=== PATIENT | female | born 1980 | race Caucasian/White ===

== ENCOUNTER → 2023-11-21 08:08 | Outpatient (REF) | payer BC, SELFPAY | LOC: RCS 08:08 | PROVIDERS: ATTENDING PHYSICIAN Nurse Practitioner; FAMILY PHYSICIAN Physician Assistant Medical | DX: R06.09 Other forms of dyspnea (principal); Q23.1 Congenital insufficiency of aortic valve; R07.89 Other chest pain | CPT/HCPCS: 93306; Q9950 ==

== ENCOUNTER → 2023-11-23 09:45 | Outpatient (REF) | payer BC, SELFPAY | LOC: DHSLP 09:45 | PROVIDERS: ATTENDING PHYSICIAN Physician Assistant Medical; FAMILY PHYSICIAN Family Medicine | DX: G47.33 Obstructive sleep apnea (adult) (pediatric) (principal); G47.61 Periodic limb movement disorder | CPT/HCPCS: 95810 ==

== ENCOUNTER 2024-02-09 19:20 | Emergency (ER) | payer BC, SELFPAY ==
[2024-02-09 19:26] VITALS: BP 117/75
--- NOTE | 2024-02-09 19:48 | ED.GENMED ---
History of Present Illness
General
Chief Complaint: Throat Problem
Source: patient
Exam Limitations: none
Time Seen by Provider: 02/09/24 19:43
History of Present Illness
History of Present Illness:
See MDM
Past History
Past History
ED Past Medical History: Asthma, Valvular disease (bicuspid aortic) and Other (Migraines, R fibula fracture, Ovarian cyst, Bicuspid aortic valve,)
ED Past Surgical History: (X2)
Social History
Tobacco: Non-smoker
Alcohol: Occasional
Drug: None
Personal:
Living: with family
Employment: Employed
Family History
Family History: Other
Phy Exam
Physical Exam
Physical Exam:
See MDM
Sepsis
Sepsis Screening
Sepsis Assessment: Sepsis Ruled Out
Sepsis Screen
Sepsis Screen: Sepsis Ruled Out
Date: 02/09/24
Time: 21:29
Course
Orders/Labs/Results
Orders:
Orders
02/09/24 19:47
0.9% Sodium Chloride 1000 ml [Nss] 1,000 ml IV BOLUS
Dexamethasone Sod Phosphate [Decadron] 10 mg IV NOW STA
Ketorolac [Toradol] 30 mg IV NOW STA
Ondansetron Injectable [Zofran] 4 mg IV NOW STA
02/09/24 19:59
COVID-19 Antigen Urgent
Source: Nasal Swab
Complete Blood Count/With Diff Urgent
Comprehensive Metabolic Panel Urgent
Monotest Urgent
Influenza A+B Rapid Molecular Urgent
AUBREY Source: Nasal Swab
Specimen Description:
Rapid Strep Group A Urgent
AUBREY Source: Throat/Pharynx
Specimen Description:
Date Specimen was Collected: 02/09/24
Time Specimen was Collected: 19:50
02/09/24 21:27
NSS 1000mL Bolus over 1 hr 0.9% Sodium Chloride 1000 ml [Nss] 1,000 ml IV BOLUS
Abnormal Lab Results
02/09/24
19:59
Glucose 117 H mg/dl
(70-99)
02/09/24 19:59
02/09/24 19:59
Vital Signs
Initial and Last Documented VS:
Initial Vital Signs
Temp Pulse Resp BP Pulse Ox
97.7 F 111 22 117/75 97
02/09/24 19:26 02/09/24 19:26 02/09/24 19:26 02/09/24 19:26 02/09/24 19:26
Last Documented Vital Signs
Temp Pulse Resp BP Pulse Ox
97.7 F 71 16 107/70 98
02/09/24 19:26 02/09/24 21:00 02/09/24 21:00 02/09/24 21:00 02/09/24 21:00
MDM/Problems Addressed
Differential Diagnosis Includes:
HPI and MDM Narrative:
43-year-old female presenting with worsening sore throat. Patient was diagnosed with presumed strep pharyngitis on Monday and started amoxicillin. Symptoms have worsened. She now has decreased p.o. intake and subjective fevers. She complains of
worsening pain on exam, she is clinically dehydrated.
Posterior pharynx shows enlarged tonsils with exudate left greater than right. There is no evidence of uvular deviation. She is protecting her airway.
Since patient is immunocompromised on Enbrel for RA, will continue with antibiotics regardless of the possibility of this being viral. Given the swelling, will start Decadron. Patient given Toradol and fluids.
Physical exam
General: Mildly uncomfortable
HEENT: protecting airway. Posterior pharynx erythematous and edematous. Uvula midline. Exudate noted to the left. Dry mucous membranes
Neck: supple. No stridor
CV: No evidence of cyanosis
Resp: No accessory muscle use
Abd: Non-distended
Extremities: No deformities
Neuro: alert
Psych: Normal affect
Skin: Intact
Problems Addressed including Acute and Chronic Conditions affecting care:
1. Pharyngitis
Acuity: acute
Prognosis: stable
Details: Potentially viral. Regardless, she is immunocompromise. Will continue with antibiotic therapy. Will give dose of Decadron and Toradol
2. Dehydration
Acuity: acute
Prognosis: stable
Details: Appears to be in the setting of poor p.o. intake due to throat pain. Will give IV fluids
Updates
Blood work without clinical significance. Strep symptoms negative. Patient feeling better after IV fluids. She still appears mildly dry. Will give second liter of IV fluids. Patient going home
Differential Diagnosis (but not limited to): Strep pharyngitis, viral pharyngitis, mono
Testing considered: CT neck but there is no crepitus or uvular deviation
Drug therapy (if applicable): OTC meds, please see d/c instruction regarding Rx drugs
Amount and/or Complexity of Data Reviewed
Clinical info obtained from: Patient
External data reviewed: N/A
Labs I independently reviewed (but not limited to): White blood cell count, viral testing negative, strep throat negative
Radiology: N/A
Pulse Ox: not hypoxic
EKG independently reviewed: N/A
Forming Tube Selector: N/A
Critical Care: N/A
Risk of Complication:
Social Determinants of health: Good social support
Discussed with other providers: N/A
Escalation of Care includes Admit/Obs: After being observed in the Emergency Department, pt stable for discharge.
Occasional wrong word or 'sound a like' substitutions may have occurred due to the inherent limitations of voice recognition software. Read the chart carefully and recognize, using context, where substitutions have occurred.
*Critical Care Note
Total Time (30-74mins, 75-104mins- exclusive of procedures): Not Applicable
ED Attending Note
-
Portions of this chart may have been created with voice recognition software.� Occasional wrong word or��sound alike� substitutions may have occurred due to the inherent limitations of voice recognition software.
Discharge Plan
Departure
Patient Disposition: Home (Routine Discharge)
Date of Disposition: 02/09/24
Time of Disposition: 21:28
Patient with high blood pressure during this ER visit?: No
Discharge Problem:
Pharyngitis
Instructions: Sore throat in adults
Prescriptions:
No Action
cetirizine 10 MG tablet
10 mg PO DAILY
bupropion HCl 150 MG tablet extended release 24 hr
150 mg PO DAILY
Enbrel 50 mg/mL (1 mL) Syringe
50 mg SC QWEEK
Wegovy 0.5 mg/0.5 mL Pen Injector
0.5 mg SC QWEEK
epinephrine [Epipen] 0.3 MG/0.3/SYRINGE auto-injector
0.3 mg IM PRN PRN (Reason: allergic reaction)
amoxicillin 500 mg Capsule
500 mg PO BID
Referrals:
Shania Linn PA-C [Family Provider] -
Activity Restrictions/Additional Instructions:
Please return for any worsening symptoms.
You may return at any time if you have further concerns.
Please follow up with your doctor at the first available appointment, preferably this week.
Thank you for choosing [facility].
Interventions
Interventions:
*Risk Screen - Suicide Last Done: 02/09/24 19:25
*General Assessment Last Done: 02/09/24 19:26
*Neglect/Abuse Screening Last Done: 02/09/24 19:26
*ED COVID-19 Vaccine History Last Done: 02/09/24 19:55
ED-EENT Assessment Last Done: 02/09/24 20:17
ED- Pulmonary Assessment Last Done: 02/09/24 20:17
Discharge Date and Time
Print Language: SINGAPOREAN
[2024-02-09 19:55] VITALS: BMI 41.9
[2024-02-09 20:00] VITALS: BP 106/78
[2024-02-09] MEDS: ZOFRAN 4 MG IV (20:07)
[2024-02-09] MEDS: NSS 1000 IV ×2 (20:07→21:43)
[2024-02-09] MEDS: TORADOL 30 MG IV (20:09)
[2024-02-09] MEDS: DECADRON 10 MG IV (20:11)
--- NOTE | 2024-02-09 20:18 | EDRN ---
Pt says she developed one side throat pain one week ago. Pt went to her doctor on Monday and was told it is not strep but prescribed amoxicillin 500 BID. Pt had negative covid/flu test. Pt reports pain is worse and unbearable. Pt has been
alternating tylenol and motrin with last dose tylenol around 0. Pt's children have had colds recently but symptoms were not the same. Pt has not been able to eat for couple days due to the pain. No cp, sob, abd pain, diarrhea/constipation. Pt
concerned because when she stands up she feels dizzy. Pt has had weakness, fever up to 102 and nausea.
[2024-02-09 20:25] LABS: % Basophils 0.5 % (0-2); % Eosinophils 0.4 % (0-6); % Immature Granulocytes 0.5 % (0-0.5); % Lymphocytes 29.1 % (20.5-51.1); % Monocytes 7.3 % (1.7-9.3); % Neutrophils 62.2 % (42.2-75.2); Absolute Lymphocytes 2.4 10^3/uL (1.2-3.4); Absolute Monocytes 0.6 10^3/uL (0.1-0.6); Absolute Neutrophils 5.1 10^3/uL (1.4-6.5); Hematocrit 42.6 % (37.0-47.0); Hemoglobin 14.7 g/dL (12.0-16.0); Mean Corp Hgb Conc. 34.5 g/dL (33.0-37.0); Mean Corpuscular Hgb 30.8 pg (27.0-31.0); Mean Corpuscular Volume 89.3 fL (81.0-99.0); Mean Platelet Volume 9.3 fL (7.4-10.4); Nucleated Red Blood Cells % 0 %; Platelet Count 241 10^3/uL (130-400); Red Blood Cell Count 4.77 10^6/uL (4.20-5.40); Red Cell Dist. Width 12.7 % (11.5-14.5); White Blood Cell Count 8.2 10^3/uL (4.8-10.8)
[2024-02-09 20:45] LABS: ALT (SGPT) 19 U/L (0-35); AST (SGOT) 23 U/L (14-36); Albumin 3.8 g/dl (3.5-5.0); Alkaline Phosphatase 75 U/L (38-126); Blood Urea Nitrogen 15 mg/dl (7-17); COVID-19 Antigen Negative (Negative); Calcium 9.1 mg/dl (8.4-10.2); Carbon Dioxide 22 mmol/L (22-30); Chloride 104 mmol/L (98-107); Estimated Creatinine Clearance > 125 ml/min; Glucose 117 mg/dl (70-99); Potassium 3.8 mmol/L (3.5-5.1); Sodium 139 mmol/L (135-145); Total Bilirubin 0.4 mg/dl (0.2-1.3); Total Protein 6.7 g/dl (6.3-8.2); eGFR > 60.00
[2024-02-09 20:50] LABS: Monotest Negative (Negative)
[2024-02-09 21:00] VITALS: BP 107/70
[2024-02-09 22:00] VITALS: BP 104/64
[2024-02-09 22:58] VITALS: BP 116/63
== END 2024-02-09 23:04 | disposition home or self-care (01) ==
LOC: EMR 19:20
PROVIDERS: EMERGENCY PHYSICIAN Student in an Organized Health Care Education/Training Program; FAMILY PHYSICIAN Physician Assistant Medical
DX: J02.9 Acute pharyngitis, unspecified (principal); J45.909 Unspecified asthma, uncomplicated; I38 Endocarditis, valve unspecified; Q23.1 Congenital insufficiency of aortic valve
CPT/HCPCS: 99283; 96374; 96375; 96361; 80053; 85025; 86308; 87070; 87502; 87811; 87880

== ENCOUNTER 2024-02-14 23:12 | Observation (INO) | payer BC, SELFPAY ==
[2024-02-14 16:35] VITALS: BP 116/62
[2024-02-14 16:54] LABS: % Basophils 0.5 % (0-2); % Eosinophils 1.4 % (0-6); % Immature Granulocytes 1.4 % (0-0.5); % Lymphocytes 21.1 % (20.5-51.1); % Monocytes 5.4 % (1.7-9.3); % Neutrophils 70.2 % (42.2-75.2); Absolute Basophils 0.1 10^3/uL (0-0.2); Absolute Eosinophils 0.2 10^3/uL (0-0.7); Absolute Immature Granulocytes 0.2 10^3/uL (0-0.05); Absolute Lymphocytes 2.8 10^3/uL (1.2-3.4); Absolute Monocytes 0.7 10^3/uL (0.1-0.6); Absolute Neutrophils 9.2 10^3/uL (1.4-6.5); Hematocrit 47.7 % (37.0-47.0); Hemoglobin 16.8 g/dL (12.0-16.0); Mean Corp Hgb Conc. 35.2 g/dL (33.0-37.0); Mean Corpuscular Hgb 31.6 pg (27.0-31.0); Mean Corpuscular Volume 89.7 fL (81.0-99.0); Mean Platelet Volume 9.1 fL (7.4-10.4); Nucleated Red Blood Cells % 0 %; Platelet Count 386 10^3/uL (130-400); Red Blood Cell Count 5.32 10^6/uL (4.20-5.40); Red Cell Dist. Width 12.5 % (11.5-14.5); White Blood Cell Count 13.2 10^3/uL (4.8-10.8)
[2024-02-14 17:12] LABS: HCG, Serum Qualitative Screen Negative
[2024-02-14 17:14] LABS: ALT (SGPT) 40 U/L (0-35); AST (SGOT) 40 U/L (14-36); Albumin 4.3 g/dl (3.5-5.0); Alkaline Phosphatase 78 U/L (38-126); Blood Urea Nitrogen 16 mg/dl (7-17); Calcium 9.7 mg/dl (8.4-10.2); Carbon Dioxide 20 mmol/L (22-30); Chloride 105 mmol/L (98-107); Glucose 102 mg/dl (70-99); Potassium 4.8 mmol/L (3.5-5.1); Sodium 139 mmol/L (135-145); Total Protein 7.4 g/dl (6.3-8.2); eGFR > 60.00
--- NOTE | 2024-02-14 17:47 | ED.GENMED ---
History of Present Illness
General
Chief Complaint: Cold/Flu/URI Symptoms
Source: patient
Exam Limitations: none
Time Seen by Provider: 02/14/24 17:28
Nursing documentation reviewed up to this point in time: agreed with
History of Present Illness
History of Present Illness:
Patient to ED with complaint of weakness, sorethroat, bodyaches, skin rash, nausea/vomiting. She states symptoms started 1.5weeks ago with complaint ofsorethroat. SHe was seen by PCP on 02/05 and placed on amoxicillin for suspected strep
pharyngitis. She reports that she continued to feel worse. Came to ED on 02/08 with report of fever, worsening sorethroat, poor appetite. She was given IVF, steroid and reporst she began to feel better but then began to decline again over weekend.
She was seen by PCP today and was advised tocome to ED. SHe now has a lacy rash to BLE, hands. Denies headache, dizziness, vision changes. No abdominal pain/diarrhea. Denies and SOB/coguugh, chest pain/pressure. To ED accompanied by spouse.
Past History
Past History
ED Past Medical History: Asthma, Valvular disease (bicuspid aortic) and Other (Migraines, R fibula fracture, Ovarian cyst, Bicuspid aortic valve,)
ED Past Surgical History: (X2)
Social History
Tobacco: Non-smoker
Alcohol: Occasional
Drug: None
Personal:
Living: with family
Employment: Employed
Family History
Family History: Other
Review of Systems
Review of Systems
Allergies reviewed?: Yes
Constitutional: Reports fever, fatigue and chills
EENT: Reports sore throat
Respiratory: Reports no symptoms
Cardiac: Reports no symptoms
ABD/GI: Reports nausea and vomiting
: Reports no symptoms
Musculoskeletal: Reports other (generalized body aches)
Skin: Reports rash (lacy rash to hands, bilateral lower legs)
Neurological: Reports weakness
Psychiatric: Reports no symptoms
Phy Exam
General Physical Exam
General Presentation: moderate distress
General age: appears stated age
General Skin: warm and dry
General Habitus: normal
General Hydration: dry mucous membranes
ENT Exam
ENT Exam: EOMI, TM's normal, normocephalic, lymphnodes (enlarged tender left ant. cervical node), pharyngeal erythema and swallowing well
Cardiovascular Exam
Cardiovascular Exam: regular rate/rhythm and no edema
Pulmonary Exam
Pulmonary Exam: lungs clear and no respiratory distress
Gastrointestinal Exam
Gastrointestinal Exam: normal bowel sounds, non tender, soft, no organomegaly, non distended and no cva tenderness
Neurological Exam
Neurological Exam: alert, oriented x3, CN II-XII intact, no motor deficits, no sensory deficits and speech normal
Musculoskeletal Exam
Musculoskeletal Exam: full ROM, neuro vasc intact and other (genralized body aches)
Skin Exam
Skin Exam: normal color, warm/dry, no petechia and other (lace appearing rash on bilateral dorsal hand, BLE.)
Psychiatric Exam
Psychiatric Exam: normal mood/affect
Course
Orders/Labs/Results
Orders:
Orders
02/14/24 Dinner
Regular
At Your Request: Full Participation
Does patient need a safe tray?: No
02/14/24 16:41
Test Result ONCE
02/14/24 16:49
C-Reactive Protein Urgent
Comment: ADD ON
Complete Blood Count/With Diff Urgent
Comprehensive Metabolic Panel Urgent
Erythrocyte Sed Rate Urgent
Comment: ADD ON
HCG, Serum Qualitative Screen Urgent
Monotest Urgent
Comment: ADD ON
02/14/24 17:38
Ketorolac [Toradol] 30 mg IV NOW STA
02/14/24 17:39
0.9% Sodium Chloride 1000 ml [Nss] 1,000 ml IV BOLUS
02/14/24 18:01
Lyme Progressive Urgent
Blood Culture Urgent
AUBREY Source: Blood/Venous
Specimen Description:
02/14/24 18:03
COVID-19 Antigen Urgent
Source: Nasal Swab
Lactic Acid Urgent
Parvo Virus (B19) IgG & IgM [S] Urgent
Influenza A+B Rapid Molecular Urgent
AUBREY Source: Nasal Swab
Specimen Description:
Rapid Strep Group A Urgent
AUBREY Source: Throat/Pharynx
Specimen Description:
Date Specimen was Collected: 02/14/24
Time Specimen was Collected: 17:47
02/14/24 19:56
0.9% Sodium Chloride 1000 ml [Nss] 1,000 ml IV BOLUS
02/14/24 22:39
Admit/Transfer Patient As Directed
Co-Sign Provider:
Level of Care: Observation services
Assign to:: Medical/Surgical
Physician / Group: hospitalist
Diagnosis: Febrile illness
02/14/24 22:40
Code Status As Directed
Resuscitation Status: Full Code
02/14/24 22:58
Trazodone [Desyrel] 100 mg PO NOW STA
02/14/24 23:31
Acetaminophen [Tylenol] 650 mg PO Q4HPRN PRN
Bisacodyl [Dulcolax] 10 mg RECTAL [id number] PRN
Docusate W/Senna [Senokot-S] 1 tablet PO BIDPRN PRN
Polyethylene Glycol Powder [Miralax] 17 grams PO DAILYPRN PRN
02/14/24 23:31
Consult Notification Routine
Specialty to Notify: Infectious Disease
Date consulting provider notified: 02/15/24
Time consulting provider notified: 06:55
Notified:: Provider
Comment: tt
INFECTIOUS DISEASE CONSULT Routine
Consulting Provider: Rodolfo Prince
Was physician already notified: No
Reason for consult: fever of unknown source
Activity As Directed
Activity Level: With Assistance
Pneumatic Compression Sleeves As Directed
Type: Knee high
Vital Signs As Directed
Frequency: Per unit guidelines
DX Deep Vein Thrombosis Video Routine
02/14/24 23:41
Urinalysis Reflex To Culture Urgent
Date Specimen was Collected: 02/14/24
Time Specimen was Collected: 23:36
02/15/24 08:00
Bupropion(24Hr)Extended Releas [WELLBUTRIN XL (24 hour extended release)] 150 mg PO DAILY
Cetirizine HCl [Zyrtec] 10 mg PO DAILY
Fluoxetine HCl [Prozac] 40 mg PO DAILY
Montelukast Sodium [Singulair] 10 mg PO DAILY
02/15/24 08:33
Basic Metabolic Panel IN AM
Complete Blood Count/No Diff IN AM
02/15/24 22:00
Trazodone [Desyrel] 100 mg PO HS
Abnormal Lab Results
02/14/24 02/14/24
16:49 18:03
WBC 13.2 H 10^3/uL
(4.8-10.8)
Hgb 16.8 H g/dL
(12.0-16.0)
Hct 47.7 H %
(37.0-47.0)
MCH 31.6 H pg
(27.0-31.0)
Abs Immat Gran (auto) 0.2 H 10^3/uL
(0-0.05)
Absolute Neuts (auto) 9.2 H 10^3/uL
(1.4-6.5)
Absolute Monos (auto) 0.7 H 10^3/uL
(0.1-0.6)
Immature Gran % 1.4 H %
(0-0.5)
Carbon Dioxide 20 L mmol/L
(22-30)
Glucose 102 H mg/dl
(70-99)
AST 40 H U/L
(14-36)
ALT 40 H U/L
(0-35)
C-Reactive Protein 11.00 H mg/L
(0.0-10.00)
Parvovirus B19 IgG Ab 2.57 H IV
(<=0.90)
02/14/24 16:49
02/14/24 16:49
Vital Signs
Initial and Last Documented VS:
Initial Vital Signs
Temp Pulse Resp BP Pulse Ox
98.1 F 112 20 116/62 95
02/14/24 16:35 02/14/24 16:35 02/14/24 16:35 02/14/24 16:35 02/14/24 16:35
Last Documented Vital Signs
Temp Pulse Resp BP Pulse Ox
98.9 F 75 18 127/93 98
02/16/24 13:25 02/16/24 13:25 02/16/24 13:25 02/16/24 13:25 02/16/24 13:25
*Critical Care Note
Total Time (30-74mins, 75-104mins- exclusive of procedures): Not Applicable
Update Note
Update Note:
Patient to ED with complaint of extreme weakness, ongoing fever, n/v, sorethroat. Today developed a rash to dorsum of her hands and BLE. No petechiae. No headache or neck pain. No abdominal pain. No SOB, cough. Symptms started 1.5 weeks ago and
continue to worsen. Treated with course of amoxicillin 1 week ago without improvement. Evaluated in ED on , some improvement iwth IVF, steroids. Reports quick decline over weekend. Has been unable to eat or drink due to the nausea. Labs
reviewed. WBC 13, lactic normal. Strep influenza and COVID neg. Blood culture results peniding. SHe remains weak,ill appearing after IVF, toradol in dept. Discussed case with Dr. Lua. WIll admit to hospitalist for fever/unknown orgin,
dehydration.
ED Attending Note
-
Portions of this chart may have been created with voice recognition software.� Occasional wrong word or��sound alike� substitutions may have occurred due to the inherent limitations of voice recognition software.
Discharge Plan
Departure
Patient Disposition: Admit
Date of Disposition: 02/14/24
Time of Disposition: 21:56
Presentation/result/management discussed w/ accepting MD/DO: Hospitalist
Condition: Fair
Discharge Problem:
Fever of unknown origin, Acute dehydration
Interventions
Interventions:
*General Assessment Last Done: 02/14/24 16:39
*Neglect/Abuse Screening Last Done: 02/14/24 16:39
*Nursing Disposition Last Done: 02/14/24 23:42
ED- Pulmonary Assessment Last Done: 02/14/24 18:12
Discharge Date and Time
Discharge Date/Time: 02/14/24 23:43
[2024-02-14] MEDS: TORADOL 30 MG IV (18:04)
[2024-02-14] MEDS: NSS 1000 IV ×2 (18:05→19:56)
[2024-02-14 18:21] LABS: Erythrocyte Sed Rate 13 mm/hour (0-20)
[2024-02-14 18:29] LABS: Lactic Acid 1.1 mmol/L (0.7-2.0)
[2024-02-14 18:31] LABS: COVID-19 Antigen Negative (Negative)
[2024-02-14 18:36] LABS: Monotest Negative (Negative)
[2024-02-14 22:23] VITALS: BP 111/71
--- NOTE | 2024-02-14 22:54 | HPS.HSE ---
Family Physician
-
Family Physician: Shania Linn PA-C
Chief Complaint
-
No recurrent fevers rash
History of Present Illness
This is a 43-year-old female with past medical history of rheumatoid arthritis, depression, has mild obesity who presents to the emergency department with ongoing recurrent fevers and episode of new rash that started today.
Patient reports onset of illness about 2 weeks ago. She was feeling well then suddenly developed sore throat and neck tenderness as well as a left-sided ear tenderness and fullness. She was seen in clinic and was diagnosed with a pharyngitis. The
strep tube was negative. She did have clear exudate on the tonsils. She was on amoxicillin and later switched over to Augmentin. She did not have significant improvement and was seen in the emergency department by 5 days ago. At that time she
had negative influenza and COVID test. She also had negative Monospot testing. Parvovirus was negative. She was given IV Decadron and discharged. Patient felt better for 2 days and then started having recurrent fevers again. She recorded a max
temp of 1012 nights ago. She reports nightly chills and then waking up with sweats. She otherwise denies focal symptoms like coughing or shortness of breath. She denies any neck pain sore throat improved. She denies any chest pain. She denied
any nausea or vomiting. She denies abdominal pain. She denies diarrhea. Patient denies flank pain dysuria or pneumaturia. She denied any swelling of her joints. She had no rash until today when she reported a rash in left groin as well as left
hand. She had been taking Tylenol intermittently. Her last dose was last night.
In the emergency department when she was afebrile, blood pressure 117/71 with a pulse of 81. She was at 98% on room air
Medical History
Past Medical History
Past Medical History: Reports Other (Rheumatoid arthritis, depression, asthma,)
Past Surgical History: Reports None
Social History
Tobacco: Non-smoker
Alcohol: None
Drug: None
Personal:
Living: With Family
Employment: Employed
Family History
Family History: Not pertinent
Allergies / Home Medications
Allergies reflects when Allergies were last updated in [employer].
Home Medications with original date entered in [employer]
Allergy/Medication List:
Allergies
Allergy/AdvReac Type Severity Reaction Status Date / Time
azithromycin [From Zithromax] Allergy Hives Verified 02/14/24 16:35
shellfish derived Allergy Anaphylaxis Verified 02/14/24 16:35
sulfamethoxazole Allergy VOMITING Verified 02/14/24 16:35
[From Bactrim]
trimethoprim [From Bactrim] Allergy VOMITING Verified 02/14/24 16:35
Home Medications
cetirizine 10 mg tablet 10 mg PO DAILY Allergies 07/03/11
bupropion HCl 150 mg 24 hr tablet, extended release 150 mg PO DAILY Depression 05/10/19
epinephrine 0.3 mg/0.3 mL injection, auto-injector 0.3 mg IM DAILYPRN PRN allergic reaction 02/09/24
etanercept 50 mg/mL (1 mL) subcutaneous syringe (Enbrel) 50 mg SC PURVIS Anti-Inflammatory 02/09/24
semaglutide (weight loss) 0.5 mg/0.5 mL subcutaneous pen injector (Wegovy) 0.5 mg SC FR weight loss 02/09/24
amoxicillin 875 mg-potassium clavulanate 125 mg tablet 1 tab PO BID 02/14/24
drospirenone (contraceptive) 4 mg (28) tablet (Slynd) 1 tab PO HS 02/14/24
fluoxetine 40 mg capsule 40 mg PO DAILY 02/14/24
montelukast 10 mg tablet 10 mg PO DAILY 02/14/24
trazodone 100 mg tablet 100 mg PO HS 02/14/24
Review of Systems
-
Constitutional: Reports Night Sweats and Chills
EENT: Reports No Symptoms
Respiratory: Reports No Symptoms
Cardiac: Reports No Symptoms
Abdomen/GI: Reports No Symptoms
: Reports No Symptoms
Musculoskeletal: Reports No Symptoms
Skin: Reports Rash
Neurological: Reports No Symptoms
Endocrine: Reports No Symptoms
Hematologic/Lymphatic: Reports No Symptoms
Psych: Reports No Symptoms
Physical Exam
Vital Signs
Vital Signs
Temp Pulse Resp BP Pulse Ox
98.0 F 81 18 111/71 98
02/14/24 22:37 02/14/24 22:23 02/14/24 22:23 02/14/24 22:23 02/14/24 22:23
Physical Exam
General: Well Developed, Well Nourished, No Apparent Distress and Comfortable
HEENT: NormoCephalic, Anicteric, Moist mucous membranes, Atraumatic and PERRLA
Respiratory: Clear
Cardiac: S1/S2 and Regular Rhythm
Breast: Deferred by me
GI: Soft, Non Tender, Non Distended and Normal Bowel Sounds
Rectal: Deferred by Provider
Genito-urinary: Deferred by me
Musculoskeletal: No Clubbing
Skin: Rash (Who is a violaceous erythematous macular-papular rash in the left groin. Nonpruritic.)
Neuro: AO x 3
Hematologic/Lymphatic: Lymphadenopathy
Psych: Calm
Laboratory Results
-
02/14/24 16:49
02/14/24 16:49
Laboratory Results
Lactic Acid 1.1 mmol/L (0.7-2.0) 02/14/24 18:03
Total Bilirubin 1.0 mg/dl (0.2-1.3) 02/14/24 16:49
AST 40 U/L (14-36) H 02/14/24 16:49
ALT 40 U/L (0-35) H 02/14/24 16:49
Alkaline Phosphatase 78 U/L (38-126) 02/14/24 16:49
Data Reviewed
-
Lab Data: Labs Reviewed by me
Old Records: Reviewed
Impression/Plan
-
IMPRESSION:
Patient is a 43-year-old with history of rheumatoid arthritis on Enbrel who presents to the emergency department with development of a violaceous rash on her groin and right hand (dorsal surface) after approximately 1 week of diagnosis with
pharyngitis (negative strep) and a course of antibiotics.
PLAN:
Fever, unknown source -patient afebrile in the emergency department. Hemodynamically stable in no acute distress. She however she has a white count of 13,000 with rest of her labs unremarkable. Influenza is negative COVID is negative. Rapid
strep is negative. She does have pending Lyme. Parvovirus as well as Monospot negative. There are no joint erythema edema or tenderness. No focal findings. 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 Patient without any
abdominal complaints. No alarm signs. Rash not c/w lyme or markus.
- admit to meds/surg obs
- blood culture is NGTD
- complete basic tests for fever of unknown source to include u/a, hiv, HELENA, ferritin, ESR
- no role for empiric abx if currently afebrile with cultures pending
- Id consult
Continue her antidepressants and trazodone
DVT PPX SCDs
Code status - Full
[2024-02-14 23:33] VITALS: BMI 42.2
[2024-02-14 23:34] VITALS: BP 124/81
[2024-02-14] MEDS: DESYREL 100 MG PO (23:44)
[2024-02-14 23:50] LABS: Urine Albumin Negative (Neg - Trace); Urine Bilirubin 1+ (Negative); Urine Character Clear (Clear); Urine Color Amber; Urine Glucose Negative (Negative); Urine Ketone 3+ (Negative); Urine Leukocyte Negative (Negative); Urine Nitrite Negative (Negative); Urine Occult Blood Negative (Negative); Urine Urobilinogen 1+ (Neg - 1+)
--- NOTE | 2024-02-14 23:50 | PTCARENOTE ---
Received pt from ED @ [id number]. Pt NAGI Jiménez. Pt w itchy red rash to tops of hands and thighs. Pt oriented to room, call [facility] and plan of care.
[2024-02-15] MEDS: BENADRYL 25 MG PO ×2 (00:12→09:00)
[2024-02-15 07:10] VITALS: BP 113/83
[2024-02-15] MEDS: ZYRTEC 10 MG PO (08:39)
[2024-02-15] MEDS: PROZAC 40 MG PO (08:39)
[2024-02-15] MEDS: SINGULAIR 10 MG PO (08:39)
[2024-02-15] MEDS: WELLBUTRIN XL (24 hour extended release) 150 MG PO (08:39)
[2024-02-15 09:03] LABS: Hematocrit 43.2 % (37.0-47.0); Hemoglobin 14.8 g/dL (12.0-16.0); Mean Corp Hgb Conc. 34.3 g/dL (33.0-37.0); Mean Corpuscular Hgb 30.9 pg (27.0-31.0); Mean Corpuscular Volume 90.2 fL (81.0-99.0); Mean Platelet Volume 9.3 fL (7.4-10.4); Platelet Count 321 10^3/uL (130-400); Red Blood Cell Count 4.79 10^6/uL (4.20-5.40); Red Cell Dist. Width 12.6 % (11.5-14.5); White Blood Cell Count 9.3 10^3/uL (4.8-10.8)
--- NOTE | 2024-02-15 09:48 | W.PN.HOSP.TC ---
Today's Communication/Plan
-
po benadryl
iv toradol
id consult
bcx
monitor off of atb
Assessment / Plan
Assessment / Plan
NAD, resting comfortably in bed, appear weak
Scleral anicteric
Moist mucous membranes
No JVD
CTA bilateral
Normal S1-S2 no murmurs
Soft nontender nondistended bowel sounds active
No peripheral pitting edema
LE with violaceous dots
hands itchiness
Moves extremities spontaneously, resting tremor
AAOx3
Fever and rash
-unclear source
-coivd neg
-mono neg
-parvo pending
-bcx ordered
-lyme ordered
-id consulted
-hold off on ivatb
-I wonder if there is another rheumatolgoic disorder thats ongoing
-I have tried to call her outpatient medicare nurse but no answer, will try again
- -rick novoa [phone]
-po benadryl prn for itichiness
-iv toradol for joint pain/swelling
Anticipated Discharge: 24 - 48 hours
Subjective/Interval History
-
Date of Service: February 15, 2024
seen and examined
no new comaplints
admits to continue drenching sweats
intermittent itchiness on legs and hands
small violacious dots on hands and legs
outpatient rheum rick novoa, part of [facility]
states she feels worse then a ra flare
no diarrhea nor constipation
Objective Data
-
Labs:
Laboratory Results
02/15/24
08:33
WBC 9.3
Hgb 14.8
Hct 43.2
Plt Count 321
Sodium Pending
Potassium Pending
Chloride Pending
Carbon Dioxide Pending
BUN Pending
Creatinine Pending
Glucose Pending
Calcium Pending
Vital Signs:
Vital Signs
Temp Pulse Resp BP Pulse Ox
98 F 86 16 113/83 95
02/15/24 07:10 02/15/24 07:10 02/15/24 07:10 02/15/24 07:10 02/15/24 07:10
I&O
02/14/24 02/15/24 02/16/24
06:59 06:59 06:59
Intake Total 220 / 220
Output Total 200 / 200
Balance 20 20
[2024-02-15] MEDS: TORADOL 15 MG IV ×2 (09:54→17:34)
[2024-02-15 10:14] LABS: Blood Urea Nitrogen 17 mg/dl (7-17); Carbon Dioxide 20 mmol/L (22-30); Chloride 105 mmol/L (98-107); Estimated Creatinine Clearance > 125 ml/min; Glucose 81 mg/dl (70-99); Potassium 4.8 mmol/L (3.5-5.1); Sodium 141 mmol/L (135-145); eGFR > 60.00
--- NOTE | 2024-02-15 11:02 | CON.ID ---
Consultation
-
Date/Time Consultation Requested: February 14, 2024 2331
Date/Time Consultation Performed: February 15, 2024 1100
Requesting Provider: Dr. Reji Field
Performing Provider: Dr. Geno Gardner
Reason for Consultation: FUO
Chief Complaint / Past History
Chief Complaint
Fatigue, fever, sore throat
History of Present Illness
43 year old female with history of RA on Enbrel, bicuspid Av who presented to hospital on 02/13 with fever. She started feeling unwell 02/01 with sore throat L>R. Of note her teenage daughter had sore throat and fever few days prior to patient
getting sick. Patient saw her PCP on 02/05; Strep screen neg; she was placed on amoxicillin for pharyngitis. However, her sore throat was severe and she could not swallow. She presented to the ED 02/08 Monoscreen neg, COVID neg, Rapid strep screen
and cx negative She received Decadron and Toradol. She was discharged on Augmentin. She was feeling better over the weekend. However, on Monday, had profound fatigue and fever of 101.2. On 02/12, she noted rash on her arms and legs. Initially
non-pruritic then became itchy. She presented to ED 02/13. Afebrile. WBC 13.2. Repeat monoscreen neg. Rapid strep scree neg. COVID/Flu negative. LFT's elevated. Today, pt reports sore throat much improved. However she continues with fatigue.
malaise, and she 'hurts all over'. No RIBEIRO/sinus congestion. No cough. No N/V/Abd pain/diarrhea. No urine sxs. No recent travel. She thinks she may have had mono as a teenager.
Past History
Additional Past Medical History:
RA on Enbrel
Bicuspid aortic valve
migraine headache
Ovarian cyst
Depression
history of right fibula fracture
x 2
Allergy History:
azithromycin [From Zithromax] Allergy (Verified 02/14/24 16:35)
Hives
shellfish derived Allergy (Verified 02/14/24 16:35)
Anaphylaxis
sulfamethoxazole [From Bactrim] Allergy (Verified 02/14/24 16:35)
VOMITING
trimethoprim [From Bactrim] Allergy (Verified 02/14/24 16:35)
VOMITING
Medications Reviewed: Yes
Current Antibiotics:
none
Social History
Tobacco: Non-Smoker
Alcohol: Occasional
Drug: None
Personal:
Living: With Family
Employment: Employed (nursery school teacher)
Family History
Family History: Not Pertinent
Review of Systems
Review of Systems
General: Fever, Chills and Change in Appetite
HEENT: Lymphadenopathy; Negative Stiff Neck, Sinus Problems or Headache
Cardiovascular: Negative Chest Pain or Dyspnea
Respiratory: Negative Dyspnea or Cough
Gasteroenterology: Negative Nausea or Vomiting
Genital / Urological: Negative Dysuria, Hematuria or Flank Pain
Endocrine: Weakness and Fatigue
Musculoskeletal: Myalgias
Skin / Hair / Nails: Rash
Neurological: Negative Headache or Dizziness
All systems: All other systems were reviewed and were negative
Vital Signs
Temp Pulse Resp BP Pulse Ox
98 F 86 16 113/83 95
02/15/24 07:10 02/15/24 07:10 02/15/24 07:10 02/15/24 07:10 02/15/24 07:10
Physical Exam
Physical Exam
Constitutional: No Acute Distress and Non-toxic
Head: Normocephalic (No frontal or maxillary sinus tenderness.)
Eyes: No Conjunctival Hemorrhage and Sclera Anicteric
Pharynx: Erythema (mild L>R)
Oral: No Thrush
Lymph Nodes: Lymphadenopathy (left submandible)
Cardiovascular: Regular Rate and S1/S2
Pulmonary: Clear
Gastrointestinal: Soft, Non Tender, Non Distended and Normal Bowel Sounds
Genito-Urinary: Negative CVA Tenderness
Extremities: Negative Edema
Skin: Rash (Resolving circular annular rash dorsum of hands )
Neurological: AO x 3
Lab / Diagnostic Study Results
02/15/24 08:33
02/15/24 08:33
Abs Immat Gran (auto) 0.2 10^3/uL (0-0.05) H 02/14/24 16:49
Absolute Neuts (auto) 9.2 10^3/uL (1.4-6.5) H 02/14/24 16:49
Absolute Lymphs (auto) 2.8 10^3/uL (1.2-3.4) 02/14/24 16:49
Absolute Monos (auto) 0.7 10^3/uL (0.1-0.6) H 02/14/24 16:49
Absolute Basos (auto) 0.1 10^3/uL (0-0.2) 02/14/24 16:49
Immature Gran % 1.4 % (0-0.5) H 02/14/24 16:49
Neutrophils % 70.2 % (42.2-75.2) 02/14/24 16:49
Lymphocytes % 21.1 % (20.5-51.1) 02/14/24 16:49
Monocytes % 5.4 % (1.7-9.3) 02/14/24 16:49
Eosinophils % 1.4 % (0-6) 02/14/24 16:49
Basophils % 0.5 % (0-2) 02/14/24 16:49
ESR 13 mm/hour (0-20) 02/14/24 16:49
Lactic Acid 1.1 mmol/L (0.7-2.0) 02/14/24 18:03
C-Reactive Protein 11.00 mg/L (0.0-10.00) H 02/14/24 16:49
Microbiology Results
Micro:
02/14/24 18:03 Influenza Types A & B (VIKTORIA) - Final
Nasal Swab Negative for Influenza A & B, NAAT
Negative results must be combined with clinical observations
and patient history.
Nucleic Acid Amplification test (NAAT)performed on the
[employer] ID NOW platform.
02/14/24 18:03 Streptococcus Screen (AUBREY) - Pending
Throat/Pharynx Streptococcus Rapid Screen - Final
Rapid Strep Screen (Group A) Negative
02/14/24 18:01 Blood Culture - Pending
Blood/Venous
02/14/24CXR: No acute cardiopulmonary process.
Assessment / Plan
# Pharyngitis/fatigue
# Rash
# Elevated transaminases
# Fever at home
DDX:
? Primary EBV. Amoxicillin may have precipitated the rash.
? Primary CMV
? Respiratory virus
Plan:
- Ordered EBV Ab panel. Monoscreen is not sensitive test.
- Ordered CMV IgG, IgM
- Unlikely tickborne dz, but check Anaplasma and Ehrlichia serologies.
- Supportive care.
-Observe off abx for now
[2024-02-15 15:03] LABS: Lyme Antibody Screen, EIA Presump. Positive (Negative)
[2024-02-15 15:40] VITALS: BP 112/77
--- NOTE | 2024-02-15 16:54 | CM ---
dealer relationship manager reviewed patient's chart and met with patient and patient lives with with spouse and 2 daughter in a 2 story home home. Patient is independent with adl's and ambulation, no dme, patient drives, home when stable.
Pharmacy: [facility] in [place]
PCP: Shania Linn.
Plan; Home when stable.
[2024-02-15] MEDS: NSS 500 IV (18:17)
--- NOTE | 2024-02-15 18:25 | PTCARENOTE ---
Pt received from prior RN, states she is feeling better than she did earlier in the day. She complains of generalized body aches and malaise but states that her rash overall looks much better. +2 edema of the hand. Wedding ring is in place on pt's L
hand, coloring appears normal.
[2024-02-15] MEDS: DESYREL 100 MG PO (21:09)
[2024-02-15 22:59] VITALS: BP 101/63
[2024-02-16 07:30] VITALS: BP 101/71
[2024-02-16] MEDS: WELLBUTRIN XL (24 hour extended release) 150 MG PO (08:21)
[2024-02-16] MEDS: PROZAC 40 MG PO (08:21)
[2024-02-16] MEDS: SINGULAIR 10 MG PO (08:21)
[2024-02-16] MEDS: ZYRTEC 10 MG PO (08:21)
[2024-02-16 09:11] VITALS: BMI 42.2
--- NOTE | 2024-02-16 11:18 | CM ---
Chart reviewed home when stable, patient remains on OBS status. Asked UR to review.
Plan; Home no needs.
--- NOTE | 2024-02-16 12:01 | W.PN.HOSP.TC ---
Today's Communication/Plan
-
follow up on serologies and titers
discuss with ID or follow up there note for atb recs if lyme presumed + likely etiology
-would consider doxy 100mg bid x10day
Assessment / Plan
Assessment / Plan
NAD, resting comfortably in bed, appear weak
Scleral anicteric
Moist mucous membranes
No JVD
CTA bilateral
Normal S1-S2 no murmurs
Soft nontender nondistended bowel sounds active
No peripheral pitting edema
LE with violaceous dots
hands itchiness
Moves extremities spontaneously, resting tremor
AAOx3
Fever and rash
-unclear source
-coivd neg
-mono neg
-parvo pending
-bcx ordered
-lyme ordered, presumed +, will discuss with ID starting doxy 100mg BID [id number]
-id following
-hold off on ivatb
-I wonder if there is another rheumatolgoic disorder thats ongoing
-I have tried to call her outpatient bulk delivery driver but no answer, will try again
- -rick novoa [phone]
-po benadryl prn for itichiness
-iv toradol for joint pain/swelling
Anticipated Discharge: 24 - 48 hours
Subjective/Interval History
-
Date of Service: February 16, 2024
seen and examined
no new changes
feels the same
no acute overnight events
Objective Data
-
Vital Signs:
Vital Signs
Temp Pulse Resp BP Pulse Ox
98.3 F 76 16 101/71 95
02/16/24 07:30 02/16/24 07:30 02/16/24 07:30 02/16/24 07:30 02/16/24 09:42
I&O
02/15/24 02/16/24 02/17/24
06:59 06:59 06:59
Intake Total 220 / 220 700 / 700
Output Total 200 / 200
Balance 20 / 20 700 / 700
--- NOTE | 2024-02-16 12:21 | W.PN.ID1 ---
Date of Service
Date of Service: February 16, 2024
Today's Communication
See below. DC planning.
Assessment / Plan
# Pharyngitis- resolving
# fatigue
# Rash
# Myalgia
# Mild Elevated transaminases
# Fever at home
DDX:
? Viral illmess
? Primary CMV
? Primary EBV. Amoxicillin may have precipitated the rash.
Plan:
- EBV Ab panel pending. Monoscreen is not sensitive test.
- CMV IgG, IgM pending
- Unlikely tickborne dz, Anaplasma and Ehrlichia serologies pending
- Lyme is NOT associated with pharyngitis.
Lyme screen positive, reflex IgG and IgM western blot pending. Of note, pt reports h/o of Lyme in 2017, so IgG expected to be positive. The IgM Western Blot may or may not be helpful.
- Supportive care.
-Observe off abx for now
- Can dc home. I will call her when pending lab results are available.
Chief Complaint
-: Other (Fatigue)
Subjective / Review of Systems
Feels better today. Still exhausted.
Has transient rash.
Vital Signs / Physical Exam
Vital Signs
Vital Signs
Temp Pulse Resp BP Pulse Ox
98.3 F 76 16 101/71 95
02/16/24 07:30 02/16/24 07:30 02/16/24 07:30 02/16/24 07:30 02/16/24 09:42
Physical Exam
Constitutional: No Acute Distress and Comfortable
Eyes: No Conjunctival Hemorrhage and Sclera Anicteric
Cardiovascular: Regular Rate and S1/S2
Pulmonary: Clear
Gastrointestinal: Soft, Non Tender and Non Distended
Genito-Urinary: Negative CVA Tenderness
Extremities: Negative Edema
Neurological: AO x 3
Objective Data
Lab Data
Lab Results
02/15/24 08:33
02/15/24 08:33
ESR 13 mm/hour (0-20) 02/14/24 16:49
Estimated Creat Clear > 125 ml/min 02/15/24 08:33
Lactic Acid 1.1 mmol/L (0.7-2.0) 02/14/24 18:03
Total Bilirubin 1.0 mg/dl (0.2-1.3) 02/14/24 16:49
AST 40 U/L (14-36) H 02/14/24 16:49
ALT 40 U/L (0-35) H 02/14/24 16:49
Alkaline Phosphatase 78 U/L (38-126) 02/14/24 16:49
C-Reactive Protein 11.00 mg/L (0.0-10.00) H 02/14/24 16:49
Most recent labs reviewed.
Micro Results:
02/14/24 18:01 Blood Culture - Preliminary
Blood/Venous No Growth in 24 hours- Final report to follow
02/14/24 18:03 Streptococcus Screen (AUBREY) - Preliminary
Throat/Pharynx Culture in Progress
Streptococcus Rapid Screen - Final
Rapid Strep Screen (Group A) Negative
02/14/24 18:03 Influenza Types A & B (VIKTORIA) - Final
Nasal Swab Negative for Influenza A & B, NAAT
Negative results must be combined with clinical observations
and patient history.
Nucleic Acid Amplification test (NAAT)performed on the
[employer] NOW platform.
02/14/24CXR: No acute cardiopulmonary process.
02/16/24 Abd US: unremarkable
Care Review
Plan reviewed with: Physician (Dr. Pati Field)
--- NOTE | 2024-02-16 13:19 | W.DCSUMMARY ---
Discharge Summary
Discharge Data
Date of Admission: 02/14/24
Date of Discharge: 02/16/24
-
Pending Results: No
Hospital Course
43 F with history of history of rheumatoid arthritis, depression. Presented with fever, joint pains and rash. Evaluated by infectious disease. Titres for tick borne illnesses, cmv, ebv and parovovirus obtained. Monitor off of antibiotics. ID
believed likely a viral illness or ebv associated amoxicillin rash. ID has recommended no antibiotics and discharge home with outpatient follow up. ID will call to update about lab findings.
Discharge Plan
-
Patient Disposition: Home (Routine Discharge)
Discharge Diagnosis/Procedures: Fever joint pain and rash
Viral illness vs primary cmv vs primary ebv.
history of rheumatoid arthritis, depression,
Condition: Good
Diet: No restrictions and As tolerated
Activity: No restrictions and As tolerated
Driving Restrictions: As prior to admission
Activity Restrictions/Additional Instructions:
Presente with fever, joint pains and rash. Evaluated by infectious disease. Titres for tick borne illnesses, cmv, ebv and parovovirus obtained. Monitor off of antibiotics. ID belived likely a viral illness or ebv associated amoxicillin rash. ID has
recommended no antibiotics and discharge home with outpatient follow up. ID will call to update about lab findings.
Referrals:
Shania Linn PA-C [Family Provider] -
Geno Gardner MD [Active] -
Prescriptions:
Continued
cetirizine 10 MG tablet
10 mg PO DAILY
bupropion HCl 150 MG tablet extended release 24 hr
150 mg PO DAILY
Enbrel 50 mg/mL (1 mL) Syringe
50 mg SC PURVIS
Wegovy 0.5 mg/0.5 mL Pen Injector
0.5 mg SC FR
epinephrine 0.3 MG/0.3/SYRINGE auto-injector
0.3 mg IM DAILYPRN PRN (Reason: allergic reaction)
fluoxetine 40 mg Capsule
40 mg PO DAILY
trazodone 100 mg Tablet
100 mg PO HS
montelukast 10 mg Tablet
10 mg PO DAILY
Slynd 4 mg (28) Tablet
1 tab PO HS
Discontinued
amoxicillin-pot clavulanate [Augmentin] 875-125 mg Tablet
1 tab PO BID
Patient Comments:
02/14/24: filled 02/09/24 for 20 tablets over 10 days
Discharge Orders:
Discharge Patient (As Directed); Ordered 02/16/24
Ordered By: Reji Field
Discharge Date and Time
Print Language: SCOTTISH
[2024-02-16 13:25] VITALS: BP 127/93
[2024-02-17 17:08] LABS: CMV IgG Antibody <0.20 U/mL (<=0.70)
[2024-02-17 17:12] LABS: EBV-EA (D) Ab IgG <5.0 U/mL (0.0-10.9); EBV-NA IgG 31.5 U/mL (0.0-21.9); EBV-VCA IgM Antibodies 27.1 U/mL (0.0-43.9)
[2024-02-17 17:17] LABS: CMV IgM Antibody 20.3 AU/mL (<=29.9)
[2024-02-18 13:48] LABS: Ehrlichia chaffeensis IgG Ab <1:64 (<1:64); Ehrlichia chaffeensis IgM Ab < 1:16 (< 1:16)
[2024-02-18 15:06] LABS: Parvo B19 Ab, IgM 0.16 IV (<=0.89); Parvo Virus B19 Ab, IgG 2.57 IV (<=0.90)
[2024-02-18 17:08] LABS: Lyme Ab Western Blot IgG Negative (Negative); Lyme Ab Western Blot IgM Negative (Negative)
== END 2024-02-16 14:18 | disposition home or self-care (01) ==
LOC: 4 WEST ACU 23:12
PROVIDERS: Nurse Practitioner; ADMITTING PHYSICIAN Internal Medicine; ATTENDING PHYSICIAN Hospitalist; EMERGENCY PHYSICIAN Student in an Organized Health Care Education/Training Program; FAMILY PHYSICIAN Physician Assistant Medical; OTHER PHYSICIAN Internal Medicine Infectious Disease
DX: R50.9 Fever, unspecified (principal); R53.1 Weakness; J02.9 Acute pharyngitis, unspecified; R21 Rash and other nonspecific skin eruption; R11.2 Nausea with vomiting, unspecified; J45.909 Unspecified asthma, uncomplicated; Q23.1 Congenital insufficiency of aortic valve; M79.10 Myalgia, unspecified site; R25.1 Tremor, unspecified; R53.81 Other malaise; R74.01 Elevation of levels of liver transaminase levels; R53.83 Other fatigue; E86.0 Dehydration; M06.9 Rheumatoid arthritis, unspecified; F32.A Depression, unspecified; E66.9 Obesity, unspecified; M54.2 Cervicalgia; Z68.41 Body mass index [BMI] 40.0-44.9, adult; Z11.52 Encounter for screening for COVID-19; Z88.2 Allergy status to sulfonamides; Z88.1 Allergy status to other antibiotic agents; Z91.013 Allergy to seafood
CPT/HCPCS: 71046; 76700; 80048; 80053; 81003; 83605; 84703; 85025; 85027; 85652; 86140; 86308; 86617; 86618; 86644; 86645; 86663; 86664; 86665; 86666; 86747; 87040; 87070; 87502; 87811; 87880; 96361; 96374; 99284; G0378

== ENCOUNTER 2024-07-30 17:28 | Inpatient (IN) | payer BC, SELFPAY ==
[2024-07-30] VITALS (20 sets, daily range): BP systolic 91–105; BP diastolic 43–71; PULSE 62–90; BMI 38.6; BMI 37.9
--- NOTE | 2024-07-30 12:36 | ED.GENMED ---
History of Present Illness
<Teddy Shah DO - Last Filed: 07/31/24 15:07>
General
Chief Complaint: Cold/Flu/URI Symptoms
Source: patient and family
Exam Limitations: none
Time Seen by Provider: 07/30/24 11:25
Nursing documentation reviewed up to this point in time: agreed with
History of Present Illness
History of Present Illness:
44-year-old female history of rheumatoid, off her biologic due to episode of an eye complication, nondrinker non-smoker who was in bed with the flu last week with fever and chills recovered then developed acute onset of fatigue and chills today went
to an urgent care was hypotensive told she may have a sinus infection referred to the ER for evaluation states she feels globally weak with bodyaches, congestion with wheeze does have asthma has not been on any antibiotics has no calf pain no
history of DVT PE
Negative COVID and flu swabs at the urgent care
Past History
<Teddy Shah, DO - Last Filed: 07/31/24 15:07>
Past History
ED Past Medical History: Asthma, Valvular disease (bicuspid aortic), Other (Migraines, R fibula fracture, Ovarian cyst, Bicuspid aortic valve,) and Other
ED Past Surgical History: (X2)
Social History
Tobacco: Non-smoker
Alcohol: None
Drug: None
Personal:
Living: with family
Employment: Employed
Family History
Family History: Other
Review of Systems
<Teddy Shah, DO - Last Filed: 07/31/24 15:07>
Review of Systems
All Other Systems: Not applicable
Constitutional: Reports fatigue and chills
Respiratory: Reports cough and trouble breathing; Denies hemoptysis
Cardiac: Reports no symptoms
ABD/GI: Reports no symptoms
: Reports no symptoms
Musculoskeletal: Reports muscle stiffness
Skin: Reports no symptoms
Neurological: Reports weakness
Phy Exam
<Teddy Shah, DO - Last Filed: 07/31/24 15:07>
Physical Exam
Physical Exam:
Physical Exam
General: 44 female looks uncomfortable
Neck: Lips are dry
Heart: s1/s2 regular rate and rhythm, no murmur. equal radial pulses.
Lungs: no acute respiratory distress. clear bilaterally
Abdomen: Not
Neuro: alert and oriented. no focal neurological deficits
Skin: no rash
Psychiatric: well kept. interactive and cooperative
Extremities: no edema
Course
<Teddy Shah, DO - Last Filed: 07/31/24 15:07>
Orders/Labs/Results
Orders:
Orders
07/30/24 11:07
Electrocardiogram (*1) Urgent
Reason for Study: Chest Pain
EKG- Treatment ONCE
07/30/24 11:26
CR Chest - 2 Views Urgent
Comment:
Reason For Exam: sob
07/30/24 12:10
0.9% Sodium Chloride 1000 ml [Nss] 1,000 ml IV BOLUS
Ipratropium/Albuterol Sulfate [Duoneb] 3 ml INH R NOW STA
Ketorolac [Toradol] 30 mg IV NOW STA
07/30/24 12:45
Complete Blood Count/With Diff Urgent
Comprehensive Metabolic Panel Urgent
Procalcitonin Urgent
TSH Reflex To Free T4 Urgent
Comment: TSH REFLEX ADDED ON BY FLOOR 4:40PM 07-30-24
07/30/24 13:00
CT Pe/abd/pel W Urgent
Reason For Exam: sob low bp clear cxr
07/30/24 13:07
Add On- LAB Urgent
Tests Added?: procalcitonin
07/30/24 13:13
CefTRIAXone [Rocephin] 1,000 mg IV NOW STA
07/30/24 13:35
Sterile Water [Sterile Water For Injection] 10 ml .ROUTE .[facility]-MED ONE
07/30/24 14:56
Urinalysis Reflex To Culture Urgent
Date Specimen was Collected: 07/30/24
Time Specimen was Collected: 14:51
07/30/24 16:43
Add On- LAB Routine
Tests Added?: TSH and reflex T4
07/30/24 17:00
0.9% Sodium Chloride 500 ml [Nss] 1,000 ml IV Wide Open mls/hr
07/30/24 17:08
Admit/Transfer Patient As Directed
Co-Sign Provider:
Level of Care: Inpatient admission
Assign to:: Telemetry
Physician / Group: Hema Nugent
Diagnosis: Hypotension
Reason for Telemetry: Other
Other Reason for Telemetry: Fusiform aortic aneurysm
Date to Stop Telemetry: 08/01/24
Time to Stop Telemetry: 11:00
Reason for Hospitalization: Persistent hypotension
Expected length of stay greater than two midnights?: Yes
ELOS- Estimated Length of Stay in days: 3
I certify the patient meets the requirements for IP care: Yes
PRN Pain Medication Management As Directed
May give lesser potent ordered pain med per pt: Yes
preference::
Protocol:: Medication orders for pain may be administered in a
manner that supports deferring to patient preference
when the pt is:
- Requesting an ordered lesser potent pain medication.
Least to most potent pain medications are defined
as: acetaminophen < NSAID < tramadol < opioids
(morphine, oxycodone, hydromorphone).
- Requesting a lesser dose of the same medication IF
ORDERED.
- Requesting a less intrusive route of administration
if both routes are prescribed by the provider (PO <
IV).
07/30/24 17:09
Code Status As Directed
Resuscitation Status: Full Code
07/30/24 19:07
Lactic Acid Routine
Blood Culture Q30M
AUBREY Source: Blood/Venous
Specimen Description:
07/30/24 19:16
Blood Culture Q30M
AUBREY Source: Blood/Venous
Specimen Description:
07/30/24 19:39
0.9% Sodium Chloride 1000 ml [Nss] 1,000 ml IV 100 mls/hr
Bisacodyl [Dulcolax] 10 mg RECTAL [id number] PRN
Docusate W/Senna [Senokot-S] 1 tablet PO BIDPRN PRN
Enoxaparin Sodium [Lovenox] 40 mg SC QPM
Ipratropium/Albuterol Sulfate [Duoneb] 3 ml INH R Q4HPRN PRN
Ondansetron Injectable [Zofran] 4 mg IV Q6HPRN PRN
Polyethylene Glycol Powder [Miralax] 17 grams PO DAILYPRN PRN
07/30/24 19:39
Activity As Directed
Activity Level: As Tolerated
Notify MD As Directed
Notify physician if: Bridge Admission orders placed.
Notify attending physician:
-- upon arrival to unit
OR
-- when patient is identified as an ED hold
Vital Signs As Directed
Frequency: Per unit guidelines
O2 Therapy [RESP] Routine
Titrate/Wean O2 to maintain O2 sat greater than (%): 92
DX Deep Vein Thrombosis Video Routine
07/30/24 20:00
Acetaminophen [Tylenol] 650 mg PO Q4HWA
07/30/24 22:00
Trazodone [Desyrel] 100 mg PO HS
drospirenone (contraceptive) [Slynd] 1 tablet PO HS
07/31/24 06:00
Echo 2D MMode Color/Doppler IN AM
Reason for Study: hypotension, H/O bicuspid aorta
07/31/24 06:44
Complete Blood Count/With Diff IN AM
Comprehensive Metabolic Panel IN AM
Cortisol, Random IN AM
07/31/24 08:00
Bupropion(24Hr)Extended Releas [WELLBUTRIN XL (24 hour extended release)] 150 mg PO DAILY
Cetirizine HCl [Zyrtec] 10 mg PO DAILY
Montelukast Sodium [Singulair] 10 mg PO DAILY
08/01/24 11:00
DC Protocol for Telemetry ONCE
Abnormal Lab Results
07/30/24
12:45
MCH 31.3 H pg
(27.0-31.0)
07/30/24 12:45
07/30/24 12:45
Vital Signs
Initial and Last Documented VS:
Initial Vital Signs
Temp Pulse Resp BP Pulse Ox
98.6 F 77 20 105/59 100
07/30/24 11:00 07/30/24 11:00 07/30/24 11:00 07/30/24 11:00 07/30/24 11:00
Last Documented Vital Signs
Temp Pulse Resp BP Pulse Ox
98.2 F 71 18 108/68 95
07/31/24 11:08 07/31/24 11:08 07/31/24 11:08 07/31/24 11:08 07/31/24 11:08
<Matt Ma PA-C - Last Filed: 07/30/24 16:31>
Orders/Labs/Results
Orders:
Orders
07/30/24 11:07
Electrocardiogram (*1) Urgent
Reason for Study: Chest Pain
EKG- Treatment ONCE
07/30/24 11:26
CR Chest - 2 Views Urgent
Comment:
Reason For Exam: sob
07/30/24 12:10
0.9% Sodium Chloride 1000 ml [Nss] 1,000 ml IV BOLUS
Ipratropium/Albuterol Sulfate [Duoneb] 3 ml INH R NOW STA
Ketorolac [Toradol] 30 mg IV NOW STA
07/30/24 12:45
Complete Blood Count/With Diff Urgent
Comprehensive Metabolic Panel Urgent
Procalcitonin Urgent
TSH Reflex To Free T4 Urgent
Comment: TSH REFLEX ADDED ON BY FLOOR 4:40PM 07-30-24
07/30/24 13:00
CT Pe/abd/pel W Urgent
Reason For Exam: sob low bp clear cxr
07/30/24 13:07
Add On- LAB Urgent
Tests Added?: procalcitonin
07/30/24 13:13
CefTRIAXone [Rocephin] 1,000 mg IV NOW STA
07/30/24 13:35
Sterile Water [Sterile Water For Injection] 10 ml .ROUTE .[facility]
07/30/24 14:56
Urinalysis Reflex To Culture Urgent
Date Specimen was Collected: 07/30/24
Time Specimen was Collected: 14:51
07/30/24 16:43
Add On- LAB Routine
Tests Added?: TSH and reflex T4
07/30/24 17:00
0.9% Sodium Chloride 500 ml [Nss] 1,000 ml IV Wide Open mls/hr
07/30/24 17:08
Admit/Transfer Patient As Directed
Co-Sign Provider:
Level of Care: Inpatient admission
Assign to:: Telemetry
Physician / Group: Hema Nugent
Diagnosis: Hypotension
Reason for Telemetry: Other
Other Reason for Telemetry: Fusiform aortic aneurysm
Date to Stop Telemetry: 08/01/24
Time to Stop Telemetry: 11:00
Reason for Hospitalization: Persistent hypotension
Expected length of stay greater than two midnights?: Yes
ELOS- Estimated Length of Stay in days: 3
I certify the patient meets the requirements for IP care: Yes
PRN Pain Medication Management As Directed
May give lesser potent ordered pain med per pt: Yes
preference::
Protocol:: Medication orders for pain may be administered in a
manner that supports deferring to patient preference
when the pt is:
- Requesting an ordered lesser potent pain medication.
Least to most potent pain medications are defined
as: acetaminophen < NSAID < tramadol < opioids
(morphine, oxycodone, hydromorphone).
- Requesting a lesser dose of the same medication IF
ORDERED.
- Requesting a less intrusive route of administration
if both routes are prescribed by the provider (PO <
IV).
07/30/24 17:09
Code Status As Directed
Resuscitation Status: Full Code
07/30/24 19:07
Lactic Acid Routine
Blood Culture Q30M
AUBREY Source: Blood/Venous
Specimen Description:
07/30/24 19:16
Blood Culture Q30M
AUBREY Source: Blood/Venous
Specimen Description:
07/30/24 19:39
0.9% Sodium Chloride 1000 ml [Nss] 1,000 ml IV 100 mls/hr
Bisacodyl [Dulcolax] 10 mg RECTAL [id number] PRN
Docusate W/Senna [Senokot-S] 1 tablet PO BIDPRN PRN
Enoxaparin Sodium [Lovenox] 40 mg SC QPM
Ipratropium/Albuterol Sulfate [Duoneb] 3 ml INH R Q4HPRN PRN
Ondansetron Injectable [Zofran] 4 mg IV Q6HPRN PRN
Polyethylene Glycol Powder [Miralax] 17 grams PO DAILYPRN PRN
07/30/24 19:39
Activity As Directed
Activity Level: As Tolerated
Notify MD As Directed
Notify physician if: Bridge Admission orders placed.
Notify attending physician:
-- upon arrival to unit
OR
-- when patient is identified as an ED hold
Vital Signs As Directed
Frequency: Per unit guidelines
O2 Therapy [RESP] Routine
Titrate/Wean O2 to maintain O2 sat greater than (%): 92
DX Deep Vein Thrombosis Video Routine
07/30/24 20:00
Acetaminophen [Tylenol] 650 mg PO Q4HWA
07/30/24 22:00
Trazodone [Desyrel] 100 mg PO HS
drospirenone (contraceptive) [Slynd] 1 tablet PO HS
07/31/24 06:00
Echo 2D MMode Color/Doppler IN AM
Reason for Study: hypotension, H/O bicuspid aorta
07/31/24 06:44
Complete Blood Count/With Diff IN AM
Comprehensive Metabolic Panel IN AM
Cortisol, Random IN AM
07/31/24 08:00
Bupropion(24Hr)Extended Releas [WELLBUTRIN XL (24 hour extended release)] 150 mg PO DAILY
Cetirizine HCl [Zyrtec] 10 mg PO DAILY
Montelukast Sodium [Singulair] 10 mg PO DAILY
08/01/24 11:00
DC Protocol for Telemetry ONCE
Abnormal Lab Results
07/30/24
12:45
MCH 31.3 H pg
(27.0-31.0)
07/30/24 12:45
07/30/24 12:45
Vital Signs
Initial and Last Documented VS:
Initial Vital Signs
Temp Pulse Resp BP Pulse Ox
98.6 F 77 20 105/59 100
07/30/24 11:00 07/30/24 11:00 07/30/24 11:00 07/30/24 11:00 07/30/24 11:00
Last Documented Vital Signs
Temp Pulse Resp BP Pulse Ox
98.2 F 71 18 108/68 95
07/31/24 11:08 07/31/24 11:08 07/31/24 11:08 07/31/24 11:08 07/31/24 11:08
<Teddy Shah, DO - Last Filed: 07/31/24 15:07>
MDM/Problems Addressed
Differential Diagnosis Includes:
Pneumococcal pneumonia sepsis dehydration PE
MDM/Problems Addressed:
Fatigue shortness of breath low blood pressure
Chronic conditions affecting care: Asthma and Immunosuppressed
Acute Exacerbation and/or Progression of Chronic Illness: Asthma and Immunosuppressed
<Teddy Shah, - Last Filed: 07/31/24 15:07>
*Critical Care Note
Total Time (30-74mins, 75-104mins- exclusive of procedures): 30
<Teddy Shah, - Last Filed: 07/31/24 15:07>
Update Note
Update Note:
1 PM chest x-ray noted official report noted white count noted we will continue to hydrate given nebs consideration for CT of the chest to rule out PE or occult infection
Will also check procalcitonin
Continue hydration consideration for empiric antibiotics will also check CT abdomen rule out any intra-abdominal pathology and a urinalysis
<Matt Ma PA-C - Last Filed: 07/30/24 16:31>
Update Note
Update Note:
1 PM chest x-ray noted official report noted white count noted we will continue to hydrate given nebs consideration for CT of the chest to rule out PE or occult infection
Will also check procalcitonin
Continue hydration consideration for empiric antibiotics will also check CT abdomen rule out any intra-abdominal pathology and a urinalysis
1530: Care signed out out to me from Dr Shah, pending imaging. Pt remains hypotensive despite IV fluids. Will admit for further workup
ED Attending Note
<Teddy Shah, DO - Last Filed: 07/31/24 15:07>
-
Portions of this chart may have been created with voice recognition software.� Occasional wrong word or��sound alike� substitutions may have occurred due to the inherent limitations of voice recognition software.
Discharge Plan
Departure
Patient Disposition: Admit
Date of Disposition: 07/30/24
Time of Disposition: 15:56
Admit to: Telemetry
Presentation/result/management discussed w/ accepting MD/DO: Hospitalist
Condition: Fair
Covid-19: Not Applicable
Discharge Problem:
Hypotension
Interventions
Interventions:
*Risk Screen - Suicide Last Done: 07/30/24 11:00
*General Assessment Last Done: 07/30/24 11:00
*Neglect/Abuse Screening Last Done: 07/30/24 11:00
*ED- Fall Risk Assessment Last Done: 07/30/24 19:35
*ED COVID-19 Vaccine History Last Done: 07/30/24 12:58
*Nursing Disposition Last Done: 07/30/24 19:35
ED- Pulmonary Assessment Last Done: 07/30/24 13:00
Discharge Date and Time
Discharge Date/Time: 07/30/24 19:35
[2024-07-30] MEDS: NSS 1000 IV ×3 (12:44→20:48)
[2024-07-30] MEDS: TORADOL 30 MG IV (12:53)
[2024-07-30] MEDS: DUONEB 3 ML INH (12:53)
[2024-07-30 12:57] LABS: % Basophils 0.5 % (0-2); % Eosinophils 1.7 % (0-6); % Immature Granulocytes 0.3 % (0-0.5); % Lymphocytes 32.5 % (20.5-51.1); % Monocytes 6.7 % (1.7-9.3); % Neutrophils 58.3 % (42.2-75.2); Absolute Eosinophils 0.1 10^3/uL (0-0.7); Absolute Lymphocytes 2.1 10^3/uL (1.2-3.4); Absolute Monocytes 0.4 10^3/uL (0.1-0.6); Absolute Neutrophils 3.7 10^3/uL (1.4-6.5); Hematocrit 41.4 % (37.0-47.0); Hemoglobin 14.1 g/dL (12.0-16.0); Mean Corp Hgb Conc. 34.1 g/dL (33.0-37.0); Mean Corpuscular Hgb 31.3 pg (27.0-31.0); Mean Corpuscular Volume 91.8 fL (81.0-99.0); Mean Platelet Volume 9.3 fL (7.4-10.4); Nucleated Red Blood Cells % 0 %; Platelet Count 275 10^3/uL (130-400); Red Blood Cell Count 4.51 10^6/uL (4.20-5.40); Red Cell Dist. Width 13.2 % (11.5-14.5); White Blood Cell Count 6.3 10^3/uL (4.8-10.8)
[2024-07-30 13:09] LABS: ALT (SGPT) 20 U/L (0-35); AST (SGOT) 22 U/L (14-36); Albumin 3.7 g/dl (3.5-5.0); Alkaline Phosphatase 54 U/L (38-126); Blood Urea Nitrogen 10 mg/dl (7-17); Calcium 9.3 mg/dl (8.4-10.2); Carbon Dioxide 25 mmol/L (22-30); Chloride 107 mmol/L (98-107); Estimated Creatinine Clearance > 125 ml/min; Glucose 90 mg/dl (70-99); Potassium 4.2 mmol/L (3.5-5.1); Sodium 138 mmol/L (135-145); Total Bilirubin 0.5 mg/dl (0.2-1.3); Total Protein 6.4 g/dl (6.3-8.2); eGFR > 60.00
[2024-07-30] MEDS: ROCEPHIN 1000 MG IV (14:34)
[2024-07-30 14:41] LABS: Procalcitonin < 0.05 ng/ml (0.0-0.25)
[2024-07-30 15:06] LABS: Urine Albumin Negative (Neg - Trace); Urine Bilirubin Negative (Negative); Urine Character Clear (Clear); Urine Color Yellow; Urine Glucose Negative (Negative); Urine Ketone Negative (Negative); Urine Leukocyte Negative (Negative); Urine Nitrite Negative (Negative); Urine Occult Blood Negative (Negative); Urine Specific Gravity 1.005 (<1.030); Urine Urobilinogen Negative (Neg - 1+)
--- NOTE | 2024-07-30 17:30 | W.PN.UPDATE ---
Update Note
Progress Note Update
44-year-old female with bicuspid aortic valve C/B thoracic ascending aortic aneurysm, mild JP, mild intermittent asthma, rheumatoid arthritis on Enbrel (currently held due to ocular complication), obesity that is presenting to the emergency
department today with a complaint of upper respiratory symptoms.� States that she had the flu this past week with symptoms of fevers and chills that recovered.� Subsequently developed acute onset of fatigue and chills on 07/30, went to an urgent care
where she was found to be hypotensive.� Associated with bodyaches and congestion.� Negative COVID and flu testing at urgent care.� Upon arrival blood pressure persistently soft with SBP in the 90s, MAP persistently >65 mmHg.�
Afebrile and otherwise stable.� Lab studies unremarkable.� Chest x-ray with mild cardiomegaly and moderate tortuosity of the thoracic aorta but no acute findings.� CT A/P redemonstrated fusiform ascending thoracic aortic aneurysm and bicuspid aortic
valve, large amount of fecal material in the proximal colon and moderately distended bladder with diffuse hepatic steatosis though no other acute findings.� ECG demonstrating NSR without significant ischemic abnormality or other abnormal findings.�
In the ED was given 2 L of IV fluid without improvement of blood pressure, started on IV ceftriaxone empirically.
When speaking with the patient she states that she has been on steroid regimens multiple times over the last year.� Recently on steroid eyedrops for uveitis flare though no systemic treatment at the time.� Her symptoms of low blood pressure have
been present for 1 to 2 years.� Have been more noticeable when she has illness.� Recently evaluated by cardiology as OP who recommended compression stockings and sodium intake.
Persistent hypotension without circulatory shock.� Concern for adrenal insufficiency, despite absence of typical laboratory pattern of low sodium, high potassium, acidemia.� Cannot rule out underlying infection nor cardiac etiology with known
bicuspid aortic valve and possibility of reduced cardiac index.� Continue with light maintenance IVF for now with caution for volume overload from excess fluids.� Order blood cultures x 2, orthostatic vitals.� Will order 8 AM cortisol with further
consideration for cosyntropin stimulation.� Will check TSH with reflex T4 as well.� Consider endocrine and cardiology consult. May require replacement with hydrocortisone alone versus hydrocortisone and fludrocortisone if AI is present.
I have discussed this case with the ED attending and resident.� I will be admitting Em Sequeira to telemetry.� She will require intensive monitoring of her hemodynamics and readjustment of her immunosuppressive regimen.
Please see resident H&P for more details
--- NOTE | 2024-07-30 17:32 | HPS.HSE ---
Family Physician
-
Family Physician: Shania Linn PA-C
Chief Complaint
-
Persistent hypotension
History of Present Illness
44 y/o female with PMHx bicuspid aortic valve, thoracic ascending aortic aneurysm, mild JP, asthma, rheumatoid arthritis, macular degeneration presented to presented to the ED with upper respiratory tract symptoms. She tested positive for the flu
on 07/21 with associated upper respiratory tract symptoms, nausea, vomiting that got better over last week. She went to work on Monday, however today she woke up with chills, body aches, dry cough, flushing and congestion. She went to an urgent
care and found to be hypotensive. Tested negative for COVID and flu urgent care. Upon arrival to the ED, blood pressure was soft with systolic ranging from 91-100 and diastolic ranging from 45-71. She did endorse some hives appearing on her left
hand this am that later went away. She denies any recent fevers, sore throat, chest pain, heart palpitations, shortness of breath outside of coughing fit. She also denies rash, recent sick contacts, recent travel, nausea, vomiting. She follows
with a wolf hunter for her bicuspid aortic valve and aneurysm and she stated that 2 months ago, wolf hunter discussed putting her on medication to improve her blood pressure as she has had lower BP for the past 1-2 years, however decided against
it due to aneurysm. They recommended compression stockings and increase in Na intake. She states that she has frequently been hypotensive over the past year especially when she gets sick. She has been on steroid regimens multiple times over the last
year.
In the ED, patient received 2 L of fluids and still hypotensive. UA negative, x-ray no signs of infection however did note mild cardiomegaly and moderate tortuosity of the thoracic aorta. Ab pelvis CT no signs of acute cause of symptoms but did
note fusiform ascending thoracic aortic aneurysm, bicuspid aortic valve, large stool burden, moderately distended bladder with fatty liver. EKG in sinus rhythm, WBC within normal limits, Pro-Tian within normal limits, other labs unremarkable. She
was given 1 dose of ceftriaxone after which she stated she felt significantly better.
Medical History
Past Medical History
Past Medical History: Reports Other
Additional Past Medical History:
Fusiform ascending thoracic aortic aneurysm
Bicuspid valve
Macular degeneration
Asthma
Rheumatoid arthritis
Uveitis
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 Feb 2024 second time)
Mild JP
Past Surgical History: Reports Other
Additional Past Surgical History:
x 2
Deviated septum surgery
Right ankle reconstruction
Social History
Tobacco: Non-smoker
Alcohol: Occasional
Drug: None
Personal:
Living: With Family
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
Family History
Family History: Other (Father lung cancer, Brother diabetes, multiple siblings with HLA-B27, maternal grandmother lung cancer, maternal grandfather emphysema, paternal grandfather heart attack, paternal grandmother stroke)
Allergies / Home Medications
Allergies reflects when Allergies were last updated in [facility].
Home Medications with original date entered in [facility] [employer] [facility]
Allergy/Medication List:
Allergies
Allergy/AdvReac Type Severity Reaction Status Date / Time
azithromycin [From Zithromax] Allergy Hives Verified 07/30/24 11:06
shellfish derived Allergy Anaphylaxis Verified 07/30/24 11:06
sulfamethoxazole Allergy VOMITING Verified 07/30/24 11:06
[From Bactrim]
trimethoprim [From Bactrim] Allergy VOMITING Verified 07/30/24 11:06
Home Medications
cetirizine 10 mg tablet 10 mg PO DAILY Allergies 07/03/11
bupropion HCl 150 mg 24 hr tablet, extended release 150 mg PO DAILY Depression 05/10/19
epinephrine 0.3 mg/0.3 mL injection, auto-injector 0.3 mg IM DAILYPRN PRN allergic reaction 02/09/24
semaglutide (weight loss) 0.5 mg/0.5 mL subcutaneous pen injector (Sammy) 0.5 mg SC FR weight loss 02/09/24
drospirenone (contraceptive) 4 mg (28) tablet (Slynd) 1 tab PO HS Hormonal Agent 02/14/24
montelukast 10 mg tablet 10 mg PO DAILY Lung/Breathing Issues 02/14/24
trazodone 100 mg tablet 100 mg PO HS Mental Health/Anxiety 02/14/24
Awaiting med reconciliation.
If medication reconciliation has not been performed, why?: Other
Review of Systems
-
History Source: Patient
Constitutional: Reports Weight Loss (With wegovy), Fatigue and Chills; Denies Fever or Night Sweats
EENT: Reports Other (Congestion, flushed); Denies Sore Throat, Mouth Pain or Runny Nose
Respiratory: Reports Cough (dry); Denies Trouble Breathing
Cardiac: Reports No Symptoms
Abdomen/GI: Reports No Symptoms
: Reports No Symptoms
Neurological: Reports No Symptoms
Psych: Reports Calm
Physical Exam
Vital Signs
Vital Signs
Temp Pulse Resp BP Pulse Ox
98.5 F 68 21 98/51 100
07/30/24 13:12 07/30/24 16:15 07/30/24 16:15 07/30/24 16:00 07/30/24 16:15
Physical Exam
General: Other (Flushed )
HEENT: Moist mucous membranes, PERRLA and Other (Tender cervical adenopathy, right posterior occipital adenopathy, tenderness with palpation of sinuses )
Respiratory: Clear; No Wheezes or Crackles
Cardiac: S1/S2 and Regular Rhythm
GI: Soft, Non Tender, Non Distended and Normal Bowel Sounds
Genito-urinary: Deferred by me
Musculoskeletal: No Edema
Skin: Warm and Dry
Neuro: AO x 3
Psych: Calm
Laboratory Results
-
07/30/24 12:45
07/30/24 12:45
Laboratory Results
Total Bilirubin 0.5 mg/dl (0.2-1.3) 07/30/24 12:45
AST 22 U/L (14-36) 07/30/24 12:45
ALT 20 U/L (0-35) 07/30/24 12:45
Alkaline Phosphatase 54 U/L (38-126) 07/30/24 12:45
Impression/Plan
-
IMPRESSION:
44 y/o female with PMHx bicuspid aortic valve, thoracic ascending aortic aneurysm, mild JP, asthma, rheumatoid arthritis, macular degeneration presented to presented to the ED with upper respiratory tract symptoms. She tested positive for the flu
on 07/21 with associated upper respiratory tract symptoms, nausea, vomiting that got better over last week. She went to work on Monday, however today she woke up with chills, body aches, dry cough, flushing and congestion. She went to an urgent
care and found to be hypotensive. Tested negative for COVID and flu urgent care. Upon arrival to the ED, blood pressure was soft with systolic ranging from 91-100 and diastolic ranging from 45-71. She denies any recent fevers, sore throat, chest
pain, heart palpitations, shortness of breath outside of coughing fit. She also denies rash, recent sick contacts, recent travel, nausea, vomiting. She follows with a wolf hunter for her bicuspid aortic valve and aneurysm and she stated that 2
months ago, wolf hunter discussed putting her on medication to improve her blood pressure as she has had lower BP for the past 1-2 years, however decided against it due to aneurysm. They recommended compression stockings and increase in Na intake.
She states that she has frequently been hypotensive over the past year especially when she gets sick. She has been on steroid regimens multiple times over the last year.
PLAN:
Persistent hypotension without circulatory shock
-Flu, covid (-), wbc wnl, afebrile, chest x-ray and ab pelvis CT reveals no acute cause for symptoms
-She does have increased sinus pressure, congestion, dry cough and cervical adenopathy
-Hx low BP over past year especially when sick and multiple steroid taper use suggestive of adrenal insufficiency
-Admit to tele
-am cortisol
-repeat echo given cardiac hx pending
-TSH pending
-Blood cultures x2
-s/p 2L NSS in ED
-s/p one dose ceftriaxone in ED
-Cont maintenance fluids
-if spike in WBC or fever, restart antibiotics
Asthma/allergies
-Wheezing upon arriving at ED
-Duonebs PRN
-Cont Tequila and montelukast
Hx of bicuspid aortic valve, thoracic ascending aortic aneurysm
-Ab/pelvic CT no change from prior in 02/2024
-Last echo 11/2023 LVEF 55-60%
-Tele
-Echo pending
-tc cardiology consult if etiology remains unclear by tomorrow
Rheumatoid arthritis
-Previously on embrel but not since feb 2024 due to lymes tx
-Cont Tylenol as needed
Depression/anxiety
Insomnia
-Cont Wellbutrin and trazodone
Obesity
-Hold wegovy due to acuity
Hx Lymes
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
-Feb 2024 completed antibiotic course
Macular degeneration - receives intraocular injections every 4 weeks
Recent uveitis - tx steroid eye drops
DVT lovenox
Full code
Regular Diet
[2024-07-30 18:57] LABS: TSH Reflex To Free T4 0.77 uIU/ml (0.47-4.68)
[2024-07-30] MEDS: TYLENOL 650 MG PO (19:31)
[2024-07-30 19:36] LABS: Lactic Acid 0.9 mmol/L (0.7-2.0)
--- NOTE | 2024-07-30 20:00 | PTCARENOTE ---
Pt arrived from the ED via stretcher. Patient walked into the room with assistance from staff. Reports of some dizziness at times. AAOx3, VSS. Patient oriented to the room. Verbalized understanding of using the call cordova when needed. Call cordova is
within reach.
[2024-07-30] MEDS: SENNA SYRUP 8.8 MG PO (20:46)
[2024-07-30] MEDS: LOVENOX 40 MG SC (20:47)
[2024-07-30] MEDS: DESYREL 100 MG PO (20:48)
[2024-07-30] MEDS: TYLENOL PO (23:27)
[2024-07-31] MEDS: NSS 1000 IV ×2 (03:30→10:19)
[2024-07-31 03:32] VITALS: BP 100/64
[2024-07-31] MEDS: TYLENOL PO ×3 (04:23→23:18)
--- NOTE | 2024-07-31 04:28 | DOWNTIME ---
There was a [employer] Downtime on 07/31/2024 from 0100 to 08/01/2023 at 0420 . Downtime documentation of patient's care, including medication administrations, has been reconciled in the electronic record per guidelines. Refer to the
patient's paper chart under the miscellaneous tab to see printed paper medication records and downtime forms.
[2024-07-31 07:12] LABS: % Basophils 0.9 % (0-2); % Eosinophils 2.4 % (0-6); % Immature Granulocytes 0.4 % (0-0.5); % Monocytes 8.4 % (1.7-9.3); % Neutrophils 42.9 % (42.2-75.2); Absolute Eosinophils 0.1 10^3/uL (0-0.7); Absolute Lymphocytes 2.1 10^3/uL (1.2-3.4); Absolute Monocytes 0.4 10^3/uL (0.1-0.6); Hemoglobin 12.4 g/dL (12.0-16.0); Mean Corp Hgb Conc. 34.4 g/dL (33.0-37.0); Mean Corpuscular Hgb 31.6 pg (27.0-31.0); Mean Corpuscular Volume 91.8 fL (81.0-99.0); Mean Platelet Volume 9.5 fL (7.4-10.4); Nucleated Red Blood Cells % 0 %; Platelet Count 230 10^3/uL (130-400); Red Blood Cell Count 3.92 10^6/uL (4.20-5.40); Red Cell Dist. Width 13.4 % (11.5-14.5); White Blood Cell Count 4.6 10^3/uL (4.8-10.8)
[2024-07-31 07:15] VITALS: BP 113/70
[2024-07-31 07:48] LABS: ALT (SGPT) 17 U/L (0-35); AST (SGOT) 21 U/L (14-36); Albumin 2.8 g/dl (3.5-5.0); Alkaline Phosphatase 42 U/L (38-126); Blood Urea Nitrogen 8 mg/dl (7-17); Calcium 8.3 mg/dl (8.4-10.2); Carbon Dioxide 20 mmol/L (22-30); Chloride 113 mmol/L (98-107); Estimated Creatinine Clearance > 125 ml/min; Glucose 88 mg/dl (70-99); Potassium 4.3 mmol/L (3.5-5.1); Sodium 137 mmol/L (135-145); Total Bilirubin 0.6 mg/dl (0.2-1.3); Total Protein 5.3 g/dl (6.3-8.2); eGFR > 60.00
[2024-07-31 08:14] LABS: Cortisol, Random 11.8 ug/dl
[2024-07-31] MEDS: TYLENOL 650 MG PO ×4 (08:38→23:54)
[2024-07-31] MEDS: WELLBUTRIN XL (24 hour extended release) 150 MG PO (08:38)
[2024-07-31] MEDS: ZYRTEC 10 MG PO (08:38)
[2024-07-31] MEDS: SINGULAIR 10 MG PO (08:38)
[2024-07-31] MEDS: SENNA SYRUP 8.8 MG PO (08:38)
--- NOTE | 2024-07-31 09:09 | W.PN.HOSP.TC ---
Today's Communication/Plan
-
Echo
Cosyntropin test
Start augmentin
Assessment / Plan
Assessment / Plan
44 y/o female with PMHx bicuspid aortic valve, thoracic ascending aortic aneurysm, mild JP, asthma, rheumatoid arthritis, macular degeneration presented to presented to the ED with upper respiratory tract symptoms. She tested positive for the flu
on 07/21 with associated upper respiratory tract symptoms, nausea, vomiting that got better over last week. She went to work on Monday, however today she woke up with chills, body aches, dry cough, flushing and congestion. She went to an urgent
care and found to be hypotensive. Tested negative for COVID and flu urgent care. Upon arrival to the ED, blood pressure was soft with systolic ranging from 91-100 and diastolic ranging from 45-71. She denies any recent fevers, sore throat, chest
pain, heart palpitations, shortness of breath outside of coughing fit. She also denies rash, recent sick contacts, recent travel, nausea, vomiting. She follows with a data entry associate for her bicuspid aortic valve and aneurysm and she stated that 2
months ago, data entry associate discussed putting her on medication to improve her blood pressure as she has had lower BP for the past 1-2 years, however decided against it due to aneurysm. They recommended compression stockings and increase in Na intake.
She states that she has frequently been hypotensive over the past year especially when she gets sick. She has been on steroid regimens multiple times over the last year.
Today, BP still soft despite fluids. Feels dizzy when she stands up.
PLAN:
Persistent hypotension without circulatory shock
-Flu, covid (-), wbc wnl, afebrile, chest x-ray and ab pelvis CT reveals no acute cause for symptoms
-She does have increased sinus pressure, congestion, dry cough and cervical adenopathy
-Hx low BP over past year especially when sick and multiple steroid taper use suggestive of adrenal insufficiency
-Admit to tele
-Blood cultures x2
-s/p 2L NSS in ED
-s/p one dose ceftriaxone in ED
-stop maintenance fluids as PO intake good and appears volume overload
-if spike in WBC or fever, restart antibiotics
-TSH wnl
-am cortisol indeterminate - will order cosyntropin test
-Echo pending
Sinus infx
-Increased sinus pressure, dry cough, cervical adenopathy
-Head CT
-s/p ceftriaxone in ED x1
-Tx with augmentin day 05/19
Asthma/allergies
-Wheezing upon arriving at ED
-Duonebs PRN
-Cont Tequila and montelukast
Hx of bicuspid aortic valve, thoracic ascending aortic aneurysm
-Ab/pelvic CT no change from prior in 02/2024
-Last echo 11/2023 LVEF 55-60%
-Tele
-Echo pending
Rheumatoid arthritis
-Previously on embrel but not since feb 2024 due to lymes tx
-Cont Tylenol as needed
Depression/anxiety
Insomnia
-Cont Wellbutrin and trazodone
Obesity
-Hold wegovy due to acuity
Hx Lymes
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
-Feb 2024 completed antibiotic course
Macular degeneration - receives intraocular injections every 4 weeks
Recent uveitis - tx steroid eye drops
DVT lovenox
Full code
Regular Diet
Anticipated Discharge: Within 24 hours
Subjective/Interval History
-
Date of Service: July 31, 2024
Objective Data
-
Labs:
Laboratory Results
07/31/24
06:44
WBC 4.6 L
Hgb 12.4
Hct 36.0 L
Plt Count 230
Sodium 137
Potassium 4.3
Chloride 113 H
Carbon Dioxide 20 L
BUN 8
Creatinine 0.6
Glucose 88
Calcium 8.3 L
Total Bilirubin 0.6
AST 21
ALT 17
Alkaline Phosphatase 42
Vital Signs:
Vital Signs
Temp Pulse Resp BP Pulse Ox
98.2 F 63 17 100/64 97
07/31/24 03:32 07/31/24 03:32 07/31/24 03:32 07/31/24 03:32 07/31/24 03:32
I&O
07/30/24 07/31/24 08/01/24
06:59 06:59 06:59
Intake Total 2400 / 2400
Balance 2400 / 2400
Review of Systems
-
History Source: Patient
Constitutional: Reports Fatigue; Denies Fever or Chills
EENT: Reports Other (Sinus pressure and congestion); Denies Sore Throat or Runny Nose
Respiratory: Reports Cough (dry)
Cardiac: Reports No Symptoms
Abdomen/GI: Reports No Symptoms
Genitourinary: Reports No Symptoms
Neuro: Reports No Symptoms
Physical Exam
-
General: Other (Appears ill)
Respiratory: Clear to Auscultation
Cardiac: Regular Rhythm and S1/S2
GI: Soft, Nontender, Nondistended and Normal Bowel Sounds
Musculoskeletal: Other (increased swelling in extremities likely hypervolemia with fluids )
Skin: Warm and Dry
Neuro: AO x 3
Psych: Calm
[2024-07-31] MEDS: ZOFRAN 4 MG IV (10:14)
--- NOTE | 2024-07-31 10:20 | CM ---
Patient seen bedside, initial assessment completed. Patient is a 44 y/o female with PMHx bicuspid aortic valve, thoracic ascending aortic aneurysm, mild JP, asthma, rheumatoid arthritis, macular degeneration presented to presented to the ED with
upper respiratory tract symptoms.
Patient reports that she lives w/ spouse and 2 teenage daughters in a 2STH- 2 steps to enter the home. Patient is independent w/ ambulating, no device required. Patient reports she has a CPAP and nebulizer at home. No SNF/VN/PT hx, OP therapy in the
past. No current OP or home services at this time.
Address, point of contact and insurance verified
PCP: Shania Linn
Pharmacy: [facility]
CM consulted for AD paperwork, patient receptive to paperwork.
Plan: Home; no needs likely
[2024-07-31 11:08] VITALS: BP 108/68
[2024-07-31] MEDS: CORTROSYN 0.25 MG IV (13:24)
[2024-07-31 14:07] LABS: ACTH Stim Cortisol 0 Min 7.8 ug/dl
[2024-07-31 14:55] LABS: ACTH Stim Cortisol 30 Min 17.6 ug/dl
[2024-07-31 15:07] VITALS: BP 107/74
[2024-07-31 16:17] LABS: ACTH Stim Cortisol 60 Min 21.4 ug/dl
[2024-07-31] MEDS: LOVENOX 40 MG SC (18:32)
[2024-07-31 19:50] VITALS: BP 99/56
--- NOTE | 2024-07-31 19:55 | PTCARENOTE ---
Pt w/area redness/itching on LFA. RN josiah labs and there is where tourniquet was placed. Applied lotion, instructed to ring if itching/redenss worsens. Verbalizes understanding.
[2024-07-31] MEDS: AUGMENTIN 875 MG/125 MG 1 TABLET PO (20:00)
[2024-07-31] MEDS: SENNA SYRUP PO (20:00)
[2024-07-31 20:04] LABS: Hematocrit 37.1 % (37.0-47.0); Hemoglobin 12.8 g/dL (12.0-16.0); Mean Corp Hgb Conc. 34.5 g/dL (33.0-37.0); Mean Corpuscular Hgb 31.2 pg (27.0-31.0); Mean Corpuscular Volume 90.5 fL (81.0-99.0); Mean Platelet Volume 8.9 fL (7.4-10.4); Platelet Count 248 10^3/uL (130-400); Red Cell Dist. Width 13.2 % (11.5-14.5); White Blood Cell Count 6.9 10^3/uL (4.8-10.8)
[2024-07-31] MEDS: DESYREL 100 MG PO (21:49)
[2024-07-31] MEDS: NON-FORMULARY ITEM 1 TABLET PO (21:50)
[2024-07-31 23:28] VITALS: BP 115/64
[2024-08-01 03:34] VITALS: BP 117/76
[2024-08-01] MEDS: TYLENOL PO (04:39)
[2024-08-01 07:47] VITALS: BP 124/74
[2024-08-01 08:45] LABS: Hematocrit 38.2 % (37.0-47.0); Hemoglobin 12.9 g/dL (12.0-16.0); Mean Corp Hgb Conc. 33.8 g/dL (33.0-37.0); Mean Corpuscular Hgb 30.8 pg (27.0-31.0); Mean Corpuscular Volume 91.2 fL (81.0-99.0); Mean Platelet Volume 10.5 fL (7.4-10.4); Platelet Count 165 10^3/uL (130-400); Red Blood Cell Count 4.19 10^6/uL (4.20-5.40); Red Cell Dist. Width 13.3 % (11.5-14.5)
[2024-08-01 09:01] LABS: Blood Urea Nitrogen 9 mg/dl (7-17); Calcium 8.8 mg/dl (8.4-10.2); Carbon Dioxide 19 mmol/L (22-30); Chloride 112 mmol/L (98-107); Estimated Creatinine Clearance > 125 ml/min; Glucose 90 mg/dl (70-99); Potassium 3.9 mmol/L (3.5-5.1); Sodium 138 mmol/L (135-145); eGFR > 60.00
[2024-08-01 09:14] VITALS: BP 113/78; BP 117/78; BP 124/72; PULSE 66; PULSE 72; PULSE 88
[2024-08-01] MEDS: ZYRTEC 10 MG PO (09:22)
[2024-08-01] MEDS: AUGMENTIN 875 MG/125 MG 1 TABLET PO (09:22)
[2024-08-01] MEDS: SINGULAIR 10 MG PO (09:22)
[2024-08-01] MEDS: TYLENOL 650 MG PO ×2 (09:22→11:55)
[2024-08-01] MEDS: WELLBUTRIN XL (24 hour extended release) 150 MG PO (09:22)
[2024-08-01] MEDS: SENNA SYRUP PO (09:23)
--- NOTE | 2024-08-01 10:01 | W.PN.HOSP.TC ---
Today's Communication/Plan
-
Cont Augmentin
Aldosterone level pending
Assessment / Plan
Assessment / Plan
44 y/o female with PMHx bicuspid aortic valve, thoracic ascending aortic aneurysm, mild JP, asthma, rheumatoid arthritis, macular degeneration presented to presented to the ED with upper respiratory tract symptoms. She tested positive for the flu
on 07/21 with associated upper respiratory tract symptoms, nausea, vomiting that got better over last week. She went to work on Monday, however today she woke up with chills, body aches, dry cough, flushing and congestion. She went to an urgent
care and found to be hypotensive. Tested negative for COVID and flu urgent care. Upon arrival to the ED, blood pressure was soft with systolic ranging from 91-100 and diastolic ranging from 45-71. She denies any recent fevers, sore throat, chest
pain, heart palpitations, shortness of breath outside of coughing fit. She also denies rash, recent sick contacts, recent travel, nausea, vomiting. She follows with a automobile bumper straightener for her bicuspid aortic valve and aneurysm and she stated that 2
months ago, automobile bumper straightener discussed putting her on medication to improve her blood pressure as she has had lower BP for the past 1-2 years, however decided against it due to aneurysm. They recommended compression stockings and increase in Na intake.
She states that she has frequently been hypotensive over the past year especially when she gets sick. She has been on steroid regimens multiple times over the last year.
Today, BP still soft despite fluids. Feels dizzy when she stands up.
PLAN:
Persistent hypotension without circulatory shock
-Flu, covid (-), wbc wnl, afebrile, chest x-ray and ab pelvis CT reveals no acute cause for symptoms
-She does have increased sinus pressure, congestion, dry cough and cervical adenopathy
-Hx low BP over past year especially when sick and multiple steroid taper use suggestive of adrenal insufficiency
-Admit to tele
-Blood cultures prelim 24 hrs (-)
-s/p 2L NSS in ED
-s/p one dose ceftriaxone in ED
-if spike in WBC or fever, restart antibiotics
-TSH wnl
-Cosyntropin test ruled out adrenal insufficiency
-Discussed with echo tech and recommended ordering a renin/florence and aldosterone level
-Echo LVEF 55-60%
-Prior labs from on previous admission 02/15/24 pt tested (-) for NO acute/active Lyme, EBV, CMV, parvo, anaplasma, ehrlichia identified, however pt stated she was treated for lymes in February.
-Goal is to stable symptoms and follow up outpatient with rheumatology and PCP with aldosterone levels.
Sinus infx
-Increased sinus pressure, dry cough, cervical adenopathy
-Head CT
-s/p ceftriaxone in ED x1
-Tx with Augmentin day 2/7
-Cont with 7 day course as pt still feels unwell
Rash on upper extremities
-Bilateral upper extremity contact dermatitis where paper tape was according to pt
-1%Hydrocortisone cream for itch
Asthma/allergies
-Wheezing upon arriving at ED
-Duonebs PRN
-Cont Tequila and montelukast
Hx of bicuspid aortic valve, thoracic ascending aortic aneurysm
-Ab/pelvic CT no change from prior in 02/2024
-Last echo 11/2023 LVEF 55-60%
-Tele
-Echo pending
Rheumatoid arthritis
-Previously on embrel but not since feb 2024 due to lymes tx
-Cont Tylenol as needed
Depression/anxiety
Insomnia
-Cont Wellbutrin and trazodone
Obesity
-Hold wegovy due to acuity
Hx Lymes
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
-Feb 2024 completed antibiotic course
Macular degeneration - receives intraocular injections every 4 weeks
Recent uveitis - tx steroid eye drops
DVT lovenox
Full code
Regular Diet
Anticipated Discharge: Within 24 hours
Subjective/Interval History
-
Date of Service: August 01, 2024
Still feeling exhausted and dizzy with standing.
Objective Data
-
Labs:
Laboratory Results
08/01/24
07:35
WBC 5.0
Hgb 12.9
Hct 38.2
Plt Count 165 D
Sodium 138
Potassium 3.9
Chloride 112 H
Carbon Dioxide 19 L
BUN 9
Creatinine 0.7
Glucose 90
Calcium 8.8
Vital Signs:
Vital Signs
Temp Pulse Resp BP Pulse Ox
98.2 F 64 18 124/74 95
08/01/24 09:15 08/01/24 07:47 08/01/24 09:15 08/01/24 07:47 08/01/24 09:15
I&O
07/31/24 08/01/24 08/02/24
06:59 06:59 06:59
Intake Total 2400 / 2400 700 / 700
Balance 2400 / 2400 700 / 700
Review of Systems
-
History Source: Patient
EENT: Denies Sore Throat or Runny Nose
Respiratory: Reports No Symptoms
Cardiac: Reports No Symptoms
Abdomen/GI: Reports Nausea (Slight nausea when she stands up) and Bloody Stools (Last night bright red blood in stool); Denies Abdominal Pain
Musculoskeletal: Reports No Symptoms
Skin: Reports Rash (Bilateral upper extremities where paper tape was )
Neuro: Reports No Symptoms
Physical Exam
-
General: No Apparent Distress and Other (Flushed )
HEENT: Normocephalic
Respiratory: Clear to Auscultation
Cardiac: Regular Rhythm and S1/S2
GI: Soft, Nontender, Nondistended and Normal Bowel Sounds
Skin: Warm and Dry
Neuro: AO x 3
Psych: Calm
--- NOTE | 2024-08-01 14:11 | CM ---
Chart reviewed. Patient is medically stable for d/c.
No CM needs identified at this time
Plan: Home; no needs
[2024-08-01 14:36] VITALS: BP 104/66
--- NOTE | 2024-08-01 16:19 | W.DCSUMMARY ---
Documented by User: Melissa Deleon MD, Resident 08/01/24 16:34
Discharge Summary
Discharge Data
Date of Admission: 07/30/24
Date of Discharge: 08/01/24
-
Pending Results: No
Hospital Course
Primary diagnosis:
Persistent hypotension
Sinusitis
Secondary diagnosis:
Asthma
Bicuspid aortic valve
Thoracic ascending aortic aneurysm
Rheumatoid arthritis
Depression anxiety
Obesity
History of Lyme's
Macular degeneration
Hospital course:
44-year-old female presents to [facility] on 07/30 for persistent hypotension. Patient recently had the flu and started to get better, however on Monday she woke up with the chills, body aches, dry cough, sinus pressure, lymphadenopathy,
congestion. She went to an urgent care and they noted her blood pressure to be low and recommended her to come to the ED. Status post 2 L of fluid, patient's blood pressure was still soft. Abdominal pelvic CT was done which did not reveal acute
etiology. X-ray was also inconclusive. She was given 1 dose of ceftriaxone and admitted to the floor for further workup. She was started on Augmentin for potential sinusitis. Workup for adrenal insufficiency with a.m. cortisol levels and
cosyntropin test ruled out adrenal insufficiency. Repeat echo given the patient's cardiac history was normal.
Today, patient is feeling well enough to go home and continue further workup outpatient. Provided a slip for renin aldosterone and aldosterone level. Recommend patient to follow-up with testing machine operator for potential autoimmune contribution.
Patient is established with research consultant and may follow-up with them as well for medication to increase her blood pressure. She was sent home with Augmentin to finish out her antibiotic course.
Pertinent labs
6:44 am cortisol 11.8
Cosyntropin Stim Test Results
Cortisol baseline 7.8
Cortisol ACTH after 30 min 17.6
Cortisol ACTH after 60 min 21.4
Imaging:
Ab/pelvis CT 07/30/24
IMPRESSION:
CHEST CTA:
1. FUSIFORM ASCENDING THORACIC AORTIC ANEURYSM (4.4 cm diameter) which appears unchanged.
2. Moderate tortuosity of the descending thoracic aorta.
3. Bicuspid aortic valve.
4. 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
ABDOMEN and PELVIS:
1. Mild diffuse hepatic steatosis.
2. Large amount of fecal material in the proximal colon.
3. Moderate distention of the urinary bladder.
4. Mild chronic bilateral renal disease.
Chest x-ray:
IMPRESSION:
1. Mild cardiomegaly.
2. Moderate tortuosity of the descending thoracic aorta.
3. No radiographic evidence for pneumonia.
07/31/2024 Echo
CONCLUSIONS
-Mildly dilated left ventricle (5.4 cm). LV ejection fraction is 55-60%. No
regional wall motion abnormalities are seen.
-Normal right ventricular size and function.
-Bicuspid aortic valve which appears to open normally; peak/mean gradients
15/10 mmHg, calculated LEXIE is >2.0 cm2.
-Dilated aortic root with Sinus of Valsalva measuring 3.8 cm, sinotubular
junction measuring 3.7 cm, and ascending aorta measuring 4.5 cm.
Compared to previous echo on 11/21/2023, there does not appear to be any
hemodynamically significant aortic stenosis (previous peak/mean gradients were
19/10 mmHg, calculated LEXIE was 1.4 cm2).
Discharge Plan
-
Patient Disposition: Home (Routine Discharge)
Discharge Diagnosis/Procedures: Persistent hypovolemia, sinusitis
Condition: Fair
Diet: As tolerated
Activity: No restrictions
Driving Restrictions: As prior to admission
Bathing Restrictions: None
Blood Work: Aldosterone and Aldosterone/renin levels
Referrals:
Shania Linn PA-C [Family Provider] - in less than 1 week
Additional Discharge Medication Instructions: Meet with your testing machine operator for further autoimmune evaluation
Continue antibiotics for next 5 days
Prescriptions:
New
amoxicillin-pot clavulanate 875-125 mg Tablet
1 tab PO Q12 5 Days Qty: 10 0RF
Continued
cetirizine 10 MG tablet
10 mg PO DAILY
bupropion HCl 150 MG tablet extended release 24 hr
150 mg PO DAILY
Enbrel 50 mg/mL (1 mL) Syringe
50 mg SC PURVIS
Wegovy 0.5 mg/0.5 mL Pen Injector
0.5 mg SC FR
epinephrine 0.3 MG/0.3/SYRINGE auto-injector
0.3 mg IM DAILYPRN PRN (Reason: allergic reaction)
fluoxetine 40 mg Capsule
40 mg PO DAILY
trazodone 100 mg Tablet
100 mg PO HS
montelukast 10 mg Tablet
10 mg PO DAILY
Slynd 4 mg (28) Tablet
1 tab PO HS
Discharge Orders:
Discharge Patient (As Directed); Ordered 08/01/24
Ordered By: Melissa Deleon
Discharge Date and Time
Discharge Date/Time: 08/01/24 15:09
Print Language: MONGOLIAN

Documented by User: Hema Nugent DO 08/02/24 12:54
Discharge Summary
Discharge Data
Date of Admission: 07/30/24
Date of Discharge: 08/02/24
Total time spent discharging patient (in min): 35
Discharge Plan
-
Patient Disposition: Home (Routine Discharge)
Discharge Diagnosis/Procedures: Persistent hypovolemia, sinusitis
Condition: Fair
Diet: As tolerated
Activity: No restrictions
Driving Restrictions: As prior to admission
Bathing Restrictions: None
Blood Work: Aldosterone and Aldosterone/renin levels
Referrals:
Shania Linn PA-C [Family Provider] - in less than 1 week
Additional Discharge Medication Instructions: Meet with your testing machine operator for further autoimmune evaluation
Continue antibiotics for next 5 days
Prescriptions:
New
amoxicillin-pot clavulanate 875-125 mg Tablet
1 tab PO Q12 5 Days Qty: 10 0RF
Continued
cetirizine 10 MG tablet
10 mg PO DAILY
bupropion HCl 150 MG tablet extended release 24 hr
150 mg PO DAILY
Enbrel 50 mg/mL (1 mL) Syringe
50 mg SC PURVIS
Wegovy 0.5 mg/0.5 mL Pen Injector
0.5 mg SC FR
epinephrine 0.3 MG/0.3/SYRINGE auto-injector
0.3 mg IM DAILYPRN PRN (Reason: allergic reaction)
fluoxetine 40 mg Capsule
40 mg PO DAILY
trazodone 100 mg Tablet
100 mg PO HS
montelukast 10 mg Tablet
10 mg PO DAILY
Slynd 4 mg (28) Tablet
1 tab PO HS
Discharge Orders:
Discharge Patient (As Directed); Ordered 08/01/24
Ordered By: Melissa Deleon
Discharge Date and Time
Discharge Date/Time: 08/01/24 15:09
Print Language: MONGOLIAN
== END 2024-08-01 15:09 | disposition home or self-care (01) | DRG 641 ==
LOC: 4 EAST ACU 17:28
PROVIDERS: ADMITTING PHYSICIAN Internal Medicine; EMERGENCY PHYSICIAN Emergency Medicine; FAMILY PHYSICIAN Physician Assistant Medical
DX: E86.1 Hypovolemia (principal); I95.9 Hypotension, unspecified; J01.90 Acute sinusitis, unspecified; Q23.81 Bicuspid aortic valve; I71.21 Aneurysm of the ascending aorta, without rupture; M06.9 Rheumatoid arthritis, unspecified; F32.A Depression, unspecified; F41.9 Anxiety disorder, unspecified; E66.9 Obesity, unspecified; Z68.37 Body mass index [BMI] 37.0-37.9, adult; H35.30 Unspecified macular degeneration; K76.0 Fatty (change of) liver, not elsewhere classified; N32.89 Other specified disorders of bladder; N28.9 Disorder of kidney and ureter, unspecified; G43.909 Migraine, unspecified, not intractable, without status migrainosus; G47.33 Obstructive sleep apnea (adult) (pediatric); J45.20 Mild intermittent asthma, uncomplicated; Z79.899 Other long term (current) drug therapy; Z80.1 Family history of malignant neoplasm of trachea, bronchus and lung; Z82.3 Family history of stroke; Z82.49 Family history of ischemic heart disease and other diseases of the circulatory system; Z82.5 Family history of asthma and other chronic lower respiratory diseases; Z83.3 Family history of diabetes mellitus
CPT/HCPCS: 71046; 71275; 74177; 80048; 80053; 81003; 82533; 83605; 84145; 84443; 85025; 85027; 87040; 93005; 93306; 94640; 96361; 96374; 96375; 99285; Q9950; Q9967

== ENCOUNTER 2024-08-05 17:19 | Emergency (ER) | payer BC, SELFPAY ==
[2024-08-05 17:20] VITALS: BP 108/78
[2024-08-05 17:37] LABS: % Basophils 0.6 % (0-2); % Eosinophils 2.4 % (0-6); % Immature Granulocytes 0.4 % (0-0.5); % Lymphocytes 36.9 % (20.5-51.1); % Monocytes 5.9 % (1.7-9.3); % Neutrophils 53.8 % (42.2-75.2); Absolute Basophils 0.1 10^3/uL (0-0.2); Absolute Eosinophils 0.2 10^3/uL (0-0.7); Absolute Lymphocytes 3.1 10^3/uL (1.2-3.4); Absolute Monocytes 0.5 10^3/uL (0.1-0.6); Absolute Neutrophils 4.5 10^3/uL (1.4-6.5); Hematocrit 44.7 % (37.0-47.0); Hemoglobin 15.1 g/dL (12.0-16.0); Mean Corp Hgb Conc. 33.8 g/dL (33.0-37.0); Mean Corpuscular Hgb 31.1 pg (27.0-31.0); Mean Corpuscular Volume 92.2 fL (81.0-99.0); Mean Platelet Volume 9.1 fL (7.4-10.4); Nucleated Red Blood Cells % 0 %; Platelet Count 328 10^3/uL (130-400); Red Blood Cell Count 4.85 10^6/uL (4.20-5.40); Red Cell Dist. Width 13.5 % (11.5-14.5); White Blood Cell Count 8.3 10^3/uL (4.8-10.8)
[2024-08-05 17:45] LABS: HCG, Serum Qualitative Screen Negative
[2024-08-05 17:49] LABS: ALT (SGPT) 68 U/L (0-35); AST (SGOT) 33 U/L (14-36); Albumin 4.4 g/dl (3.5-5.0); Alkaline Phosphatase 58 U/L (38-126); Blood Urea Nitrogen 14 mg/dl (7-17); Calcium 9.4 mg/dl (8.4-10.2); Carbon Dioxide 25 mmol/L (22-30); Chloride 108 mmol/L (98-107); Glucose 92 mg/dl (70-99); Potassium 4.7 mmol/L (3.5-5.1); Sodium 142 mmol/L (135-145); Total Bilirubin 0.4 mg/dl (0.2-1.3); Total Protein 7.2 g/dl (6.3-8.2); eGFR > 60.00
[2024-08-05 19:14] VITALS: BP 105/72
--- NOTE | 2024-08-05 19:20 | ED.GENMED ---
History of Present Illness
General
Chief Complaint: Blood Pressure Problem
Source: patient and records
Exam Limitations: none
Time Seen by Provider: 08/05/24 19:07
History of Present Illness
History of Present Illness:
44yoF with a history of rheumatoid arthritis, bicuspid aortic valve, asthma presenting for evaluation of low blood pressure. Patient was recently hospitalized from 07/30/2024 to for hypotension after an influenza infection. No specific
cause was found other than sinusitis. Patient had an episode of dizziness earlier today after she stood up after doing the dishes. She states it felt like she was about to pass out but she did not lose consciousness. She had some chest discomfort
at that time which has resolved. She was seen by her PCP about an hour after this episode and her PCP was reportedly unable to do a manual blood pressure because it sounded too faint. She was advised to follow-up with a senior biostatistician and she has
this appt scheduled on 08/23/24. Her normal blood pressure is around 100/70. She currently feels fatigued but denies any other symptoms. No current dizziness. No chest pain, shortness of breath, vomiting, diarrhea, fevers, abdominal pain, back
pain, difficulty urinating.
Past History
Past History
ED Past Medical History: Asthma, Valvular disease (bicuspid aortic), Other (Migraines, R fibula fracture, Ovarian cyst, Bicuspid aortic valve,) and Other
ED Past Surgical History: (X2)
Social History
Tobacco: Non-smoker
Alcohol: None
Drug: None
Personal:
Living: with family
Employment: Employed
Family History
Family History: Other
Phy Exam
General Physical Exam
General Presentation: well appearing and no apparent distress
General age: appears stated age
General Skin: warm and dry
General Habitus: normal
General Mental: alert
ENT Exam
ENT Exam: normocephalic
Cardiovascular Exam
Cardiovascular Exam: regular rate/rhythm and no murmur
Pulmonary Exam
Pulmonary Exam: lungs clear, no respiratory distress, no rales, no crackles, no rhonchi and no wheezing
Neurological Exam
Neurological Exam: alert
[employer] Coma Scale
Eye Opening: Spontaneous
Verbal Response: Oriented
Motor Response: Obeys Commands
GCS Total Score: 15
Skin Exam
Skin Exam: normal color and warm/dry
Psychiatric Exam
Psychiatric Exam: normal mood/affect
Course
Orders/Labs/Results
Orders:
Orders
08/05/24 17:24
Test Result ONCE
08/05/24 17:27
Complete Blood Count/With Diff Urgent
Comprehensive Metabolic Panel Urgent
HCG, Serum Qualitative Screen Urgent
08/05/24 19:20
Electrocardiogram (*1) Urgent
Reason for Study: Fatigue / Weakness
EKG- Treatment ONCE
Orthostatic VS- Treatment ONCE
0.9% Sodium Chloride 1000 ml [Nss] 1,000 ml IV BOLUS
08/05/24 20:27
Troponin I Urgent
Abnormal Lab Results
08/05/24
17:27
MCH 31.1 H pg
(27.0-31.0)
Chloride 108 H mmol/L
(98-107)
ALT 68 H U/L
(0-35)
08/05/24 17:27
08/05/24 17:27
Vital Signs
Initial and Last Documented VS:
Initial Vital Signs
Temp Pulse Resp BP Pulse Ox
98.1 F 83 20 108/78 100
08/05/24 17:20 08/05/24 17:20 08/05/24 17:20 08/05/24 17:20 08/05/24 17:20
Last Documented Vital Signs
Temp Pulse Resp BP Pulse Ox
98.1 F 78 18 108/70 100
08/05/24 17:20 08/05/24 22:03 08/05/24 22:03 08/05/24 22:03 08/05/24 22:03
MDM/Problems Addressed
Differential Diagnosis Includes:
44yoF here with concern for low blood pressure. Recently admitted for hypotension. Blood pressure low at PCP's office today. Had an episode of dizziness earlier today after standing [place] [address] on [place]. Remainder of vitals stable.
She is well-appearing no acute distress. Exam is reassuring. Differential diagnosis includes but is not limited to: Dehydration, orthostatic hypotension, less likely cardiogenic
Initial ED plan: Basic labs obtained in triage which are unremarkable including normal hemoglobin, electrolytes, renal function, glucose. HCG negative. Check cardiac labs, EKG, and orthostatic vital signs. IV fluid bolus.
*EKG
Interpreted by ED Provider?: Yes
EKG Intrepretation Date: 08/05/24
Heart Rate: 63
Rate: normal
Rhythm: sinus
[place]: left axis deviation
Interval: normal interval
QRS Pattern: normal QRS
Ischemia: no ischemia
*Critical Care Note
Total Time (30-74mins, 75-104mins- exclusive of procedures): Not Applicable
Update Note
Update Note:
EKG shows normal sinus rhythm without ischemic changes and troponin within normal limits. Orthostatic vital signs normal. Patient feeling improved after fluid bolus. No episodes of hypotension throughout ED stay. No indication for
hospitalization. She was encouraged to hydrate and f/u with her PCP. ED return precautions discussed. Patient in agreement with plan and was discharged in stable condition.
ED Attending Note
-
Portions of this chart may have been created with voice recognition software.� Occasional wrong word or��sound alike� substitutions may have occurred due to the inherent limitations of voice recognition software.
Discharge Plan
Departure
Patient Disposition: Home (Routine Discharge)
Date of Disposition: 08/05/24
Time of Disposition: 21:42
Patient with high blood pressure during this ER visit?: No
Discharge Problem:
Low blood pressure reading
Instructions: Dizziness in adults - ED discharge instructions
Prescriptions:
No Action
cetirizine 10 MG tablet
10 mg PO DAILY
bupropion HCl 150 MG tablet extended release 24 hr
150 mg PO DAILY
Enbrel 50 mg/mL (1 mL) Syringe
50 mg SC PURVIS
Wegovy 0.5 mg/0.5 mL Pen Injector
0.5 mg SC FR
epinephrine 0.3 MG/0.3/SYRINGE auto-injector
0.3 mg IM DAILYPRN PRN (Reason: allergic reaction)
fluoxetine 40 mg Capsule
40 mg PO DAILY
trazodone 100 mg Tablet
100 mg PO HS
montelukast 10 mg Tablet
10 mg PO DAILY
Slynd 4 mg (28) Tablet
1 tab PO HS
amoxicillin-pot clavulanate 875-125 mg Tablet
1 tab PO Q12 5 Days Qty: 10 0RF
Referrals:
Shania Linn CRNP [Family Provider] -
Activity Restrictions/Additional Instructions:
Drink plenty of fluids and hydrate.
Please follow-up with your family doctor this week for blood pressure recheck. Return to the ER with any new or worsening symptoms.
Interventions
Interventions:
*Risk Screen - Suicide Last Done: 08/05/24 17:20
*General Assessment Last Done: 08/05/24 17:20
*Neglect/Abuse Screening Last Done: 08/05/24 22:03
*ED- Fall Risk Assessment Last Done: 08/05/24 22:03
*ED COVID-19 Vaccine History Last Done: 08/05/24 22:03
*Nursing Disposition Last Done: 08/05/24 22:03
ED- Cardiac Assessment Last Done: 08/05/24 21:00
ED- Neurological Assessment Last Done: 08/05/24 21:00
ED- Pulmonary Assessment Last Done: 08/05/24 21:00
Discharge Date and Time
Discharge Date/Time: 08/05/24 22:08
Print Language: MEXICAN
[2024-08-05 20:16] VITALS: BP 99/68
[2024-08-05] MEDS: NSS 1000 IV (20:27)
[2024-08-05 21:06] LABS: Troponin I < 0.012 ng/ml
[2024-08-05 21:41] VITALS: BP 103/55; BP 108/79; BP 112/75; PULSE 63; PULSE 64; PULSE 90
[2024-08-05 22:03] VITALS: BP 108/70
== END 2024-08-05 22:08 | disposition home or self-care (01) ==
LOC: EMR 17:19
PROVIDERS: Emergency Medicine; Physician Assistant; EMERGENCY PHYSICIAN Student in an Organized Health Care Education/Training Program; FAMILY PHYSICIAN Nurse Practitioner Adult Health
DX: R03.1 Nonspecific low blood-pressure reading (principal); M06.9 Rheumatoid arthritis, unspecified; J45.909 Unspecified asthma, uncomplicated; Q23.81 Bicuspid aortic valve
CPT/HCPCS: 99284; 96360; 80053; 84484; 84703; 85025; 93005

== ENCOUNTER 2024-08-06 14:00 | Emergency (ER) | payer BC, SELFPAY ==
[2024-08-06 14:02] VITALS: BP 121/79
[2024-08-06] MEDS: ZOFRAN ODT (ORALLY DISINTEGRATING) 4 MG PO (14:07)
[2024-08-06 14:27] LABS: % Basophils 0.8 % (0-2); % Eosinophils 2.4 % (0-6); % Immature Granulocytes 0.6 % (0-0.5); % Lymphocytes 40.1 % (20.5-51.1); % Monocytes 7.7 % (1.7-9.3); % Neutrophils 48.4 % (42.2-75.2); Absolute Basophils 0.1 10^3/uL (0-0.2); Absolute Eosinophils 0.2 10^3/uL (0-0.7); Absolute Lymphocytes 2.9 10^3/uL (1.2-3.4); Absolute Monocytes 0.6 10^3/uL (0.1-0.6); Absolute Neutrophils 3.5 10^3/uL (1.4-6.5); Hematocrit 41.9 % (37.0-47.0); Hemoglobin 14.2 g/dL (12.0-16.0); Mean Corp Hgb Conc. 33.9 g/dL (33.0-37.0); Mean Corpuscular Hgb 30.9 pg (27.0-31.0); Mean Corpuscular Volume 91.3 fL (81.0-99.0); Mean Platelet Volume 9.1 fL (7.4-10.4); Nucleated Red Blood Cells % 0 %; Platelet Count 311 10^3/uL (130-400); Red Blood Cell Count 4.59 10^6/uL (4.20-5.40); Red Cell Dist. Width 13.5 % (11.5-14.5); White Blood Cell Count 7.1 10^3/uL (4.8-10.8)
[2024-08-06 14:39] LABS: HCG, Serum Qualitative Screen Negative
[2024-08-06 14:44] LABS: ALT (SGPT) 53 U/L (0-35); AST (SGOT) 26 U/L (14-36); Alkaline Phosphatase 53 U/L (38-126); Blood Urea Nitrogen 11 mg/dl (7-17); Calcium 9.5 mg/dl (8.4-10.2); Carbon Dioxide 25 mmol/L (22-30); Chloride 110 mmol/L (98-107); Glucose 84 mg/dl (70-99); Lipase 167 U/L (23-300); Potassium 4.4 mmol/L (3.5-5.1); Sodium 143 mmol/L (135-145); Total Bilirubin 0.4 mg/dl (0.2-1.3); Total Protein 6.8 g/dl (6.3-8.2); eGFR > 60.00
--- NOTE | 2024-08-06 15:01 | ED.GENMED ---
History of Present Illness
General
Chief Complaint: Blood Pressure Problem
Time Seen by Provider: 08/06/24 14:59
History of Present Illness
History of Present Illness:
TIME OF INITIAL ENCOUNTER: 3 PM
HPI: Patient was sent here from her heat treat supervisor office due to low blood pressure. She was also seen here yesterday for low blood pressure. She was recently hospitalized here from 07/30-08/01 for hypotension after influenza. She was dizzy
yesterday when she was here for low blood pressure. She had reported that her normal blood pressures around 100/70. The patient currently feels generally weak and somewhat dizzy. She states that when she was at the heat treat supervisor office the blood
pressure was unobtainable
EXAM:
GENERAL: Well appearing, but appears somewhat weak p, palpable radial pulses, elevated BMI
HEENT: Moist oral mucosa
CARDIOVASCULAR: No murmurs, normal heart rate, regular rhythm, No chest wall tenderness, palpable radial pulses
PULMONARY: No respiratory distress, breath sounds are clear and equal
ABDOMEN: Soft with no peritoneal signs, no tenderness
NEUROLOGIC: Excellent strength all extremities, no coordination deficits
PSYCHIATRIC: Appropriate mental status, normal insight and judgement
EXTREMITIES: Nontender, no edema, moves all extremities equally
SKIN: No rash, no lesions
NUMBER AND COMPLEXITY OF PROBLEMS ADDRESSED AT THE ENCOUNTER
� Chronic conditions affecting care: Bicuspid aortic valve, asthma, migraine, anxiety/depression
� Acute Exacerbation and/or Progression of Chronic Illness: This is an acute problem
� Differential Diagnosis includes: Hypotension related to valvular disease, medication related, she has already been evaluated for adrenal insufficiency
AMOUNT AND/OR COMPLEXITY OF DATA TO BE REVIEWED AND ANALYZED
� I performed an independent evaluation of and my interpretation is:
EKG: Sinus 75, left axis deviation, nonspecific ST abnormality, no significant change from 08/05/2024
CT:
X-rays:
Laboratory Studies: CBC, chemistries, hCG all unremarkable
Other:
� Review of other/old records: I reviewed the discharge summary from 08/01/2024
� Clinical information was obtained by an independent historian: None needed
� Prescriptions/Medications Considered but not given:
� Further testing considered but not performed:
RISK OF COMPLICATIONS AND/OR MORBIDITY OR MORTALITY OF PATIENT MANAGEMENT
� Social determinants of health affecting care: Lives at home
� Discussion with other providers:
� Escalation of care including admission/observation vs risk of discharge considered: Although the patient had been having issues with hypotension, she is normotensive but continues to feel unwell. Will give IV fluids. She
actually has an appoint to see Dr. Ratliff tomorrow. She states she has a TAA measuring 4.8 cm known to [place]. She has not been having any chest pain or back pain.
ANY OTHER UPDATES:
5:45 PM: I reassessed patient. She is now normotensive and feels markedly proved after nearly 2 L of fluid. She is going to follow-up Dr. Ratliff tomorrow.
Past History
Past History
ED Past Medical History: Asthma, Valvular disease (bicuspid aortic), Other (Migraines, R fibula fracture, Ovarian cyst, Bicuspid aortic valve,) and Other
ED Past Surgical History: (X2)
Social History
Tobacco: Non-smoker
Alcohol: None
Drug: None
Personal:
Living: with family
Employment: Employed
Family History
Family History: Other
Phy Exam
Physical Exam
Physical Exam:
See HPI
Course
Orders/Labs/Results
Orders:
Orders
08/06/24 14:07
Ondansetron Orally Disint [Zofran Odt (Orally Disintegrating)] 4 mg .ROUTE .STK-MED ONE
Ondansetron Orally Disint [Zofran Odt (Orally Disintegrating)] 4 mg PO NOW STA
08/06/24 14:12
ECG [Electrocardiogram (*1)] Urgent
Reason for Study: Vertigo / Dizzy
EKG- Treatment ONCE
Test Result ONCE
08/06/24 14:16
Complete Blood Count/With Diff Urgent
Comprehensive Metabolic Panel Urgent
HCG, Serum Qualitative Screen Urgent
Lipase Urgent
08/06/24 15:09
0.9% Sodium Chloride 1000 ml [Nss] 1,000 ml IV BOLUS
Ondansetron Injectable [Zofran] 4 mg IV NOW STA
08/06/24 16:38
0.9% Sodium Chloride 1000 ml [Nss] 1,000 ml IV BOLUS
Abnormal Lab Results
08/06/24
14:16
Immature Gran % 0.6 H %
(0-0.5)
Chloride 110 H mmol/L
(98-107)
ALT 53 H U/L
(0-35)
08/06/24 14:16
08/06/24 14:16
Vital Signs
Initial and Last Documented VS:
Initial Vital Signs
Temp Pulse Resp BP Pulse Ox
37.0 C 104 20 121/79 99
08/06/24 14:02 08/06/24 14:02 08/06/24 14:02 08/06/24 14:02 08/06/24 14:02
Last Documented Vital Signs
Temp Pulse Resp BP Pulse Ox
37.0 C 60 18 111/69 98
08/06/24 14:02 08/06/24 17:41 08/06/24 16:11 08/06/24 17:41 08/06/24 17:41
*Critical Care Note
Total Time (30-74mins, 75-104mins- exclusive of procedures): Not Applicable
ED Attending Note
-
Portions of this chart may have been created with voice recognition software.� Occasional wrong word or��sound alike� substitutions may have occurred due to the inherent limitations of voice recognition software.
Discharge Plan
Departure
Prescriptions:
No Action
cetirizine 10 MG tablet
10 mg PO DAILY
bupropion HCl 150 MG tablet extended release 24 hr
150 mg PO DAILY
Enbrel 50 mg/mL (1 mL) Syringe
50 mg SC PURVIS
Wegovy 0.5 mg/0.5 mL Pen Injector
0.5 mg SC FR
epinephrine 0.3 MG/0.3/SYRINGE auto-injector
0.3 mg IM DAILYPRN PRN (Reason: allergic reaction)
fluoxetine 40 mg Capsule
40 mg PO DAILY
trazodone 100 mg Tablet
100 mg PO HS
montelukast 10 mg Tablet
10 mg PO DAILY
Slynd 4 mg (28) Tablet
1 tab PO HS
amoxicillin-pot clavulanate 875-125 mg Tablet
1 tab PO Q12 5 Days Qty: 10 0RF
Referrals:
Shania Linn CRNP [Family Provider] -
Interventions
Interventions:
*Risk Screen - Suicide Last Done: 08/06/24 14:02
*General Assessment Last Done: 08/06/24 14:02
*Neglect/Abuse Screening Last Done: 08/06/24 15:25
*ED- Fall Risk Assessment Last Done: 08/06/24 15:25
*ED COVID-19 Vaccine History Last Done: 08/06/24 15:25
ED- Cardiac Assessment Last Done: 08/06/24 15:26
ED- Neurological Assessment Last Done: 08/06/24 15:26
ED- Pulmonary Assessment Last Done: 08/06/24 15:27
Discharge Date and Time
Print Language: YAKUT
[2024-08-06] MEDS: NSS 1000 IV ×2 (15:19→16:48)
[2024-08-06] MEDS: ZOFRAN 4 MG IV (15:23)
[2024-08-06 16:11] VITALS: BP 102/58
[2024-08-06 17:41] VITALS: BP 111/69
== END 2024-08-06 18:18 | disposition home or self-care (01) ==
LOC: EMR 14:00
PROVIDERS: Emergency Medicine; EMERGENCY PHYSICIAN Emergency Medicine; FAMILY PHYSICIAN Nurse Practitioner Adult Health
DX: I95.9 Hypotension, unspecified (principal); I71.20 Thoracic aortic aneurysm, without rupture, unspecified
CPT/HCPCS: 99284; 96374; 96361 ×2; 80053; 83690; 84703; 85025; 93005

== ENCOUNTER → 2025-01-16 19:27 | Outpatient (REF) | payer BC, SELFPAY | LOC: MRI 3T 19:27 | PROVIDERS: ATTENDING PHYSICIAN Psychiatry & Neurology Neurology; FAMILY PHYSICIAN Physician Assistant Medical | DX: G35 Multiple sclerosis (principal) | CPT/HCPCS: 72146 ==

== ENCOUNTER → 2025-01-17 19:06 | Outpatient (REF) | payer BC, SELFPAY | LOC: MRI 3T 19:06 | PROVIDERS: ATTENDING PHYSICIAN Psychiatry & Neurology Neurology; FAMILY PHYSICIAN Physician Assistant Medical | DX: G35 Multiple sclerosis (principal) | CPT/HCPCS: 70553; 72156; A9575 ==

== ENCOUNTER 2025-03-27 16:30 | Emergency (ER) | payer SELFPAY ==
[2025-03-27 16:32] VITALS: BP 121/98
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
[2025-03-27] MEDS: NORCO 5/325 1 TABLET PO (18:53)
== END 2025-03-27 18:57 | disposition home or self-care (01) ==
LOC: EMR 16:30
PROVIDERS: EMERGENCY PHYSICIAN Emergency Medicine; FAMILY PHYSICIAN Physician Assistant Medical
DX: S16.1XXA Strain of muscle, fascia and tendon at neck level, initial encounter (principal); S09.90XA Unspecified injury of head, initial encounter; J45.909 Unspecified asthma, uncomplicated; E27.40 Unspecified adrenocortical insufficiency; V49.40XA Driver injured in collision with unspecified motor vehicles in traffic accident, initial encounter
CPT/HCPCS: 99284; 70450; 71120; 72125